=== PATIENT | male | born 1965 | race Caucasian/White ===

== ENCOUNTER 2024-09-17 05:10 | Emergency (ER) | payer OTHER, SELFPAY ==
[2024-09-17 05:11] VITALS: BMI 39.5
[2024-09-17 05:12] VITALS: BP 192/101; PULSE 58; RESP 19; TEMP 36.4; O2SAT 99
--- NOTE | 2024-09-17 06:15 | XR_ITS ---
Examination: CT abdomen and pelvis without contrast. Coronal 3-D reconstructions. Sagittal 2-D reconstructions. Date and time of exam:September 17, 2024, 0723 hours Comparison September 27, 2023 INDICATIONS: Generalized abdominal pain beginning yesterday, history kidney stones CTDI: vol (mGy): 15.3 DLP: (mGycm): 1018 Technique: Axial images of the abdomen have been obtained, 3 mm slice thickness Intravenous contrast material has not been administered. Low dose protocols were performed. One or more of the following dose reduction techniques were used; automated exposure control, adjustment of the mA and/or KV according to patient size, use of iterative reconstruction technique. Findings: No focal liver or splenic lesions No gallstones No pancreatic mass 10 mm right adrenal nodule, likely adenoma, noted on the 2019 exam again noted A 4 mm lower pole left renal calculus No hydronephrosis or ureteral calculi Normal appendix Colonic diverticulosis, no diverticulitis No bladder mass or bladder calculi Mild prostatomegaly Advanced degenerative disc disease T12-L1, L5-S1 IMPRESSION: 4 mm lower pole nonobstructing left renal calculus, no hydronephrosis or ureteral calculi Normal appendix No bowel obstruction or diverticulitis
--- NOTE | 2024-09-17 06:15 | XR_ITS ---
Examination: PA lateral chest 2 views TECHNIQUE: Upright PA and lateral chest 2 views Date and time: September 17, 2024, 0637 hours INDICATIONS: Chest pain today FINDINGS: Normal heart size. Lungs are clear. Osseous structures are intact. IMPRESSION: No active disease.
--- NOTE | 2024-09-17 06:15 | EKG_ITS ---
[facility] Test Date: 2024-09-17 Pat Name: ANNA HOGAN Department: Room: - Gender: Male Silo Filler: : 1965 Requested By: Jacquelyn Talbot Order Number: [id number] Reading MD: Jacquelyn Talbot Measurements Intervals [place] Rate: 57 P: 41 MI: 185 QRS: 36 QRSD: 99 T: 52 QT: 429 QTc: 418 Interpretive Statements SINUS BRADYCARDIA No previous ECG available for comparison /store/S0/[id number]/ecg/[id number].pdf
--- NOTE | 2024-09-17 06:18 | PD.EDRME ---
Rapid Medical Screening Exam RME Arrival date/time: 09/17/24 05:10 Chief Complaint: Abdominal Pain Time Seen by Provider: 09/17/24 05:49 Vital signs: Vital Signs Temperature 97.5 F 09/17/24 05:12 Pulse Rate 58 L 09/17/24 05:12 Respiratory Rate 19 09/17/24 05:12 Blood Pressure 192/101 H 09/17/24 05:12 Pulse Oximetry (%) 99 09/17/24 05:12 Oxygen Delivery Method Room Air 09/17/24 05:12 Vital signs reviewed by provider: Yes RME Narrative: 59-year-old male presents to the ED with a complaint of central abdominal pain extending down into his scrotum as well as nausea, left anterior chest pressure with radiation to his left arm. I have greeted and performed a focused initial assessment of this patient. A comprehensive ED assessment and evaluation of the patient, analysis of all test results, and completion of the medical decision making process will be conducted by additional ED providers.
[2024-09-17 07:24] LABS: Basophils # (Auto) 0.1 Thou/mm3 (0.0-0.2); Basophils % (Auto) 1 % (0-2.5); Eosinophils # (Auto) 0.3 Thou/mm3 (0.0-0.5); Eosinophils % (Auto) 5 % (0-10); Hematocrit 42.1 % (41.0-53.0); Immature Granulocytes % (Auto) 1 % (0-0); Immature Granulocytes Auto 0.06 Thou/mm3 (0.00-0.00); Lymphocytes # (Auto) 2.1 Thou/mm3 (1.0-4.8); Lymphocytes % (Auto) 32 % (10-50); Mean Corpuscular HGB Conc 35.6 g/dl (31.0-37.0); Mean Corpuscular Volume 84 fL (80-100); Monocytes # (Auto) 0.4 Thou/mm3 (0.0-0.8); Monocytes % (Auto) 7 % (0-12); Neutrophils # (Auto) 3.6 Thou/mm3 (1.8-7.7); Neutrophils % (Auto) 55 % (37-80); Nucleated Red Blood Cell % 0 /100 WBC (0); Platelet Count 217 Thou/mm3 (140-440); RDW Standard Deviation 36.6 fL (35.1-43.9); White Blood Count 6.5 Thou/mm3 (3.8-10.6)
[2024-09-17 07:38] LABS: B-Type Natriuretic Peptide 91 pg/mL (0-100)
[2024-09-17 07:40] LABS: Alanine Aminotransferase 20 U/L (10-49); Albumin, Serum 4.2 gm/dL (3.4-4.8); Albumin/Globulin Ratio 1.4 (1.2-2.2); Alkaline Phosphatase 67 U/L (46-116); Amylase 83 U/L (30-118); Anion Gap 6 (7-16); Aspartate Amino Transferase 21 U/L (0-34); BUN/Creatinine Ratio 9 Ratio (12-20); Bilirubin,Total 0.5 mg/dL (0.3-1.2); Blood Urea Nitrogen 12 mg/dL (9-23); Calcium 8.6 mg/dL (8.3-10.6); Calcium (Corrected) 8.6 mg/dL (8.5-10.1); Carbon Dioxide 29.6 mMol/L (20.0-31.0); Chloride 106 mMol/L (98-107); Creatinine (Component) 1.3 mg/dL (0.6-1.3); Estimated Creatinine Clearance 86.4 mL/min (>60); Globulin 2.9 gm/dL (2.3-3.5); Glucose 98 mg/dL (74-106); LDH (Lactate Dehydrogenase) 179 U/L (120-246); Lipase 33 U/L (12-53); Magnesium 1.8 mg/dL (1.6-2.6); Osmolality,Calculated 282 (275-295); Sodium 142 mMol/L (136-145); Total Protein 7.1 gm/dL (5.7-8.2); Troponin I < 0.002 ng/mL (0.0-0.045); eGFR > 60 See Note
[2024-09-17 08:23] LABS: Partial Thromboplastin Time 26.5 Seconds (22.0-36.0); Prothrombin Time 11.3 Seconds (9.0-12.2)
[2024-09-17 09:03] VITALS: BP 194/96; PULSE 60; RESP 14; O2SAT 97
--- NOTE | 2024-09-17 09:38 | EDNOTE_ITS ---
ED Abdominal Pain RME/HPI General Chief Complaint: Abdominal Pain Stated complaint: generalized abd pain Time seen by provider: 09/17/24 05:49 Arrival date/time: 09/17/24 05:10 Limitations: no limitations RME / HPI RME / HPI narrative: 59-year-old male presents to the ED with a complaint of central abdominal pain extending down into his scrotum as well as nausea, left anterior chest pressure with radiation to his left arm. I have greeted and performed a focused initial assessment of this patient. A comprehensive ED assessment and evaluation of the patient, analysis of all test results, and completion of the medical decision making process will be conducted by additional ED providers. DR. WHITING MAIN ED EVALUATION: 59 year old male with past medical history significant for kidney stones presents to the Emergency Department with complaints of left flank and left lower quadrant abdominal pain since yesterday. Pain is described as sharp and rated moderate in severity. Associated symptoms include decreased appetite. No leg swelling. No nausea, vomiting, diarrhea, fevers or chills reported. Patient also reported chest pain that began today, has completely resolved since arriving here. Related Data Previous Rx's ?Medication ?Instructions ?Recorded acetaminophen 300 mg-codeine 30 mg 1 tab PO Q6H PRN pa in #10 tabs 09/27/23 tablet ibuprofen 600 mg tablet 600 mg PO Q6H PRN pain #30 t abs 09/27/23 ondansetron 4 mg disintegrating 4 mg PO Q6H PRN nausea and 09/27/23 tablet vomiting #10 tabs tamsulosin 0.4 mg capsule (Flomax) 0.4 mg PO QDAY #5 c aps 09/27/23 amlodipine 5 mg tablet 5 mg PO QDAY high blood pres sure 09/17/24 #30 tabs Allergies Allergy/AdvReac Type Severity Reaction Status Date / Time latex Allergy Verified 09/17/24 05:16 morphine Allergy unknown Verified 09/17/24 05:16 shrimp Allergy HIVES Verified 09/17/24 05:16 Review of Systems Review of Systems Systems Reviewed: All systems reviewed, normal except as documented Past Medical History Past Medical History GENITOURINARY: Positive Kidney Stones Surgical History SURGICAL: Positive Vasectomy Social History SMOKING STATUS: Former smoker SUBSTANCE USE: does not use ALCOHOL: Never ED Exam General Limitations: Present no limitations General appearance: Present alert, in no apparent distress and obese Head Head exam: Present atraumatic, normocephalic and normal inspection Eye Eye exam: Present normal appearance, PERRL and EOMI ENT ENT exam: Present normal exam, normal oropharynx and mucous membranes moist Neck Neck exam: Present normal inspection, full ROM and trachea midline Chest Chest inspection: Present normal inspection and symmetric chest wall rise Respiratory Respiratory exam: Present normal lung sounds bilaterally Cardiovascular Cardiovascular exam: Present regular rate, normal rhythm and normal heart sounds Abdominal Exam Abdominal exam: Present soft and normal bowel sounds Extremities Exam Extremities exam: Present normal inspection and full ROM Back Exam Back exam: Present normal inspection and full ROM Neurological Exam Neurological exam: Present alert, oriented X3 and CN II-XII intact Psychiatric Psychiatric exam: Present normal affect and normal mood Skin Skin exam: Present warm, dry, intact and normal color Course Quality Measures none Orders Category Date Time Status EKG (ED ONLY) *Do not use* NOW Care 09/17/24 06:15 Completed NPO STAT Care 09/17/24 06:[address] abdomen pelvis wo con Stat Exams 09/17/24 06:15 Completed EKG (ED Only) Stat Exams 09/17/24 06:15 Draft XR chest 2V Stat Exams 09/17/24 06:15 Completed Amylase Stat Lab 09/17/24 07:01 Completed B-Type Natriuretic Peptide Stat Lab 09/17/24 07:01 Completed CBC Stat Lab 09/17/24 07:01 Completed Comprehensive Metabolic Panel Stat Lab 09/17/24 07:01 Completed Drug Screen,Urine Stat Lab 09/17/24 09:50 Completed LDH (Lactate Dehydrogenase) Stat Lab 09/17/24 07:01 Completed Lipase Stat Lab 09/17/24 07:01 Completed Magnesium Stat Lab 09/17/24 07:01 Completed Partial Thromboplastin Time Stat Lab 09/17/24 07:01 Completed Prothrombin Time with INR Stat Lab 09/17/24 07:01 Completed Troponin I Stat Lab 09/17/24 07:01 Completed Troponin I Stat Lab 09/17/24 09:50 Completed Urinalysis Stat Lab 09/17/24 09:50 Completed Diltiazem Cd [Cardizem Cd] Med 09/17/24 09:49 Discontinued 180 mg PO X1 ONE cloNIDine HCL [Catapres] Med 09/17/24 09:42 Discontinued 0.1 mg PO X1 ONE hydrALAZINE INJ [Apresoline Inj] Med 09/17/24 09:42 Discontinued 5 mg IV X1 ONE Vital Signs Vital signs: Vital Signs Temperature 97.5 F 09/17/24 05:12 Pulse Rate 58 L 09/17/24 05:12 Respiratory Rate 19 09/17/24 05:12 Blood Pressure 192/101 H 09/17/24 05:12 Pulse Oximetry (%) 99 09/17/24 05:12 Oxygen Delivery Method Room Air 09/17/24 05:12 Abdominal Pain MDM MDM Narrative MDM Narrative:: I, Mariaelena Willams am scribing for and in the presence of Dr. Whiting. Patient data External records reviewed:: [facility] previous records (Reviewed last ED visit dated 09/27/23 discharged with the following: Kidney stone on right side) Clinical information provided by:: patient Social determinants that could affect healthcare access:: other (specify) (Former smoker) Patient has the following chronic illnesses:: kidney stones How is presenting disease/condition affected by chronic disease/condition?: exacerbated by Evaluation data The following diagnostics were reviewed and interpreted by me:: lab results, radiology exam(s) and EKG tracing(s) (EKG#1: EKG at 0642 hours. Interpreted by me: sinus rhythm, rate 57, no acute changes, MS interval 185 ms, QRS duration 99 ms, QT/QTc 429/422, P-R-T axis 41, 36, and 52) Lab and/or radiology exams considered but not ordered:: none Interpretation Summary: Procedure(s): XR chest 2V Accession Number(s): [id number] cc: Coy Morataya MD; NO PRIMARY/FAMILY,PHYSICIAN; Jacquelyn Duggan PA-C~ Examination: PA lateral chest 2 views TECHNIQUE: Upright PA and lateral chest 2 views Date and time: September 17, 2024, 0637 hours INDICATIONS: Chest pain today FINDINGS: Normal heart size. Lungs are clear. Osseous structures are intact. IMPRESSION: No active disease. Dictated By: Coy Morataya MD Procedure(s): CT abdomen pelvis bree maldonado Accession Number(s): [id number] cc: Coy Morataya MD; NO PRIMARY/FAMILY,PHYSICIAN; Jacquelyn Duggan PA-C~ Examination: CT abdomen and pelvis without contrast. Coronal 3-D reconstructions. Sagittal 2-D reconstructions. Date and time of exam:September 17, 2024, 0723 hours Comparison September 27, 2023 INDICATIONS: Generalized abdominal pain beginning yesterday, history kidney stones CTDI: vol (mGy): 15.3 DLP: (mGycm): 1018 Technique: Axial images of the abdomen have been obtained, 3 mm slice thickness Intravenous contrast material has not been administered. Low dose protocols were performed. One or more of the following dose reduction techniques were used; automated exposure control, adjustment of the mA and/or KV according to patient size, use of iterative reconstruction technique. Findings: No focal liver or splenic lesions No gallstones No pancreatic mass 10 mm right adrenal nodule, likely adenoma, noted on the 2019 exam again noted A 4 mm lower pole left renal calculus No hydronephrosis or ureteral calculi Normal appendix Colonic diverticulosis, no diverticulitis No bladder mass or bladder calculi Mild prostatomegaly Advanced degenerative disc disease T12-L1, L5-S1 IMPRESSION: 4 mm lower pole nonobstructing left renal calculus, no hydronephrosis or ureteral calculi Normal appendix No bowel obstruction or diverticulitis Dictated By: Coy Morataya MD Medications / Prescriptions Medications or Prescriptions considered but not ordered:: none Medication administrations:: Medication Administration History Discontinued Medications Clonidine (Clonidine Hcl 0.1 Mg Tablet) 0.1 mg PO X1 ONE Stop: 09/17/24 09:43 Last Admin: 09/17/24 09:48 Dose: 0.1 mg Documented By: MARLENI Diltiazem HCl (Diltiazem Cd 180 Mg Capcr) 180 mg PO X1 ONE Stop: 09/17/24 09:50 Last Admin: 09/17/24 10:43 Dose: 180 mg Documented By: MARLENI Hydralazine HCl (Hydralazine Inj 20 Mg/Ml Vial) 5 mg IV X1 ONE Stop: 09/17/24 09:43 Last Admin: 09/17/24 09:47 Dose: Not Given Documented By: MARLENI Non-Admin Reason: Cancelled by Provider see above Consultations Consultation(s) initiated? (list below): No Diagnosis Differential diagnosis abdominal pain: abdominal pain, calculus of kidney and other (Nephrolithiasis) Most likely diagnosis given after review of the tests above:: Left flank pain likely due to kidney stone Nephrolithiasis Resolved chest pain Obesity Hypertension Admission Indicated Admission indicated?: not indicated Admission Request Was there a request for admission?: No Disposition Plan Disposition Plan: Discharge Discharge Attestation Discharge Attestation: The patient and all family members were given an opportunity to ask questions and understood the discharge instructions. Discharge instructions specifically effects, indications for sooner follow up or return to the emergency department, and the expected course of current diagnosis. Patient condition: Stable Discharge Plan Plan Patient Disposition: HOME (Self Care) Patient condition on transfer: Stable Prescriptions/Referrals Prescriptions/Med Rec: New amlodipine 5 mg tablet 5 mg PO QDAY MDD 1 Qty: 30 0RF No Action tamsulosin [Flomax] 0.4 mg capsule 0.4 mg PO QDAY Qty: 5 0RF ibuprofen 600 mg tablet 600 mg PO Q6H PRN (Reason: pain) Qty: 30 0RF acetaminophen-codeine 300-30 mg tablet 1 tab PO Q6H PRN (Reason: pain) Qty: 10 0RF ondansetron 4 mg tablet,disintegrating 4 mg PO Q6H PRN (Reason: nausea and vomiting) Qty: 10 0RF Referrals: No Primary/Family,Physician [Primary Care Provider] - In 1 week Problem List Clinical Impression: Flank pain, Nephrolithiasis, Chest pain, Obesity, Hypertension Patient/Caregiver Discharge Instructions Education Materials: Obesity and Its Impact on Health, Losing Weight for Heart Health, 5 Steps for Eating Healthier, Risk Factors for Heart Disease, Weight Management: Getting Started, Weight Manage Exercise Activity, Healthy Snacking, ED Chest Pain, Uncertain Cause, ED High Blood Pressure ..., ED Kidney Stone, Passed Additional Instructions: Please follow-up with your primary care physician within a week. Return to the Emergency Department as needed. [facility] [address] [place], [place] [id number] Print Language: Danish Stand Alone Forms: [employer] Award Info., Work/School Release, Patient Portal Info Letter
[2024-09-17 09:48] VITALS: BP 194/96; PULSE 63
[2024-09-17] MEDS: cloNIDine HCL 0.1 MG TABLET PO (09:48)
[2024-09-17 09:54] LABS: Collection Type, Urine Clean Catch
[2024-09-17 10:15] LABS: Troponin I < 0.002 ng/mL (0.0-0.045)
[2024-09-17 10:43] VITALS: BP 173/104; PULSE 66
[2024-09-17] MEDS: DILTIAZEM CD 180 MG CAPCR PO (10:43)
[2024-09-17 11:17] LABS: Bilirubin,Urine Negative (Negative); Blood,Urine Trace (Negative); Clarity,Urine Clear (Clear/Hazy); Color,Urine Lt-Yellow (Lt Yel-Yel); Glucose, Urine Negative (Negative); Ketones,Urine Negative (Negative); Leukocyte Esterase,Urine Negative (Negative); Nitrite,Urine Negative (Negative); Protein,Urine Negative (Neg - Trace); RBC,Urine 1 /hpf (0-3); Specific Gravity,Urine 1.021 (1.001-1.035); Squamous Epithelial Cell,Urine < 1 /hpf (0-5); Urobilinogen,Urine Negative mg/dL (0.0-1.0); WBC,Urine < 1 /hpf (0-5)
[2024-09-17 11:31] LABS: Amphetamine/Methamp Scrn,U Negative (Negative); Barbiturate Screen,Urine Negative (Negative); Benzodiazepines Screen,Urine Negative (Negative); Benzoylecgonine Screen, Ur Negative (Negative); Fentanyl Screen,Urine Negative (Negative); Opiate Screen,Urine Negative (Negative); THC Screen,Urine Positive (Negative)
[2024-09-17 12:08] VITALS: BP 161/98; PULSE 60; RESP 16; TEMP 36.6; O2SAT 9
[2024-09-17 12:11] VITALS: BP 144/85; PULSE 101; RESP 17; TEMP 36.8; O2SAT 98
== END 2024-09-17 12:19 | disposition home or self-care (01) ==
PROVIDERS: Family Medicine; Physician Assistant; Emergency Provider Emergency Medicine
DX: N20.0 Calculus of kidney (principal); I10 Essential (primary) hypertension; E66.9 Obesity, unspecified; R07.9 Chest pain, unspecified; R00.1 Bradycardia, unspecified; Z68.39 Body mass index [BMI] 39.0-39.9, adult; Z87.891 Personal history of nicotine dependence
CPT/HCPCS: 36415; 71046; 74176; 80053; 80307; 81001; 82150; 83615; 83690; 83735; 83880; 84484; 85025; 85610; 85730; 93005; 99284; A9270

== ENCOUNTER 2024-12-28 08:56 | Emergency (ER) | payer OTHER, SELFPAY ==
[2024-12-28 08:57] VITALS: BMI 39.5
[2024-12-28 09:07] VITALS: PULSE 113; RESP 18; TEMP 36.6; O2SAT 98
--- NOTE | 2024-12-28 09:21 | EDNOTE_ITS ---
ED Abdominal Pain RME/HPI General Chief Complaint: Abdominal Pain Stated complaint: LEFT FLANK PAIN x 2 HOURS, HX STONE Time seen by provider: 12/28/24 09:15 Arrival date/time: 12/28/24 08:56 Limitations: no limitations RME / HPI RME / HPI narrative: DR. VALERIY RUSS ED EVALUATION: 59-year-old male with past medical history of kidney stones presents to the Emergency Department with left flank pain, similar to prior episodes. He describes the pain as localized to the left flank and has been experiencing symptoms consistent with his previous kidney stone episodes. Past surgical history includes vasectomy. Social history is notable for never smoking, no alcohol use, and no recreational drug use. Related Data Previous Rx's ?Medication ?Instructions ?Recorded acetaminophen 300 mg-codeine 30 mg 1 tab PO Q6H PRN pa in #10 tabs 09/27/23 tablet ibuprofen 600 mg tablet 600 mg PO Q6H PRN pain #30 t abs 09/27/23 ondansetron 4 mg disintegrating 4 mg PO Q6H PRN nausea and 09/27/23 tablet vomiting #10 tabs tamsulosin 0.4 mg capsule (Flomax) 0.4 mg PO QDAY #5 c aps 09/27/23 amlodipine 5 mg tablet 5 mg PO QDAY high blood pres sure 09/17/24 #30 tabs hydrocodone 5 mg-acetaminophen 325 1 tab PO Q6H PRN pa in #10 tabs 12/28/24 mg tablet hydrocodone 5 mg-acetaminophen 325 1 tab PO Q8H PRN pa in #10 tabs 12/28/24 mg tablet ibuprofen 800 mg tablet 800 mg PO TID PRN pain #20 t abs 12/28/24 Allergies Allergy/AdvReac Type Severity Reaction Status Date / Time latex Allergy Severe Hives Verified 12/28/24 08:59 morphine Allergy Severe unknown Verified 12/28/24 08:59 shrimp Allergy Severe HIVES Verified 12/28/24 08:59 Review of Systems Review of Systems Systems Reviewed: All systems reviewed, normal except as documented Past Medical History Past Medical History GENITOURINARY: Positive Kidney Stones Surgical History SURGICAL: Positive Vasectomy Social History SMOKING STATUS: Never smoker SUBSTANCE USE: does not use ALCOHOL: Never ED Exam General Limitations: Present no limitations General appearance: Present alert and in distress (grabbing his left flank area, looks in pain) Head Head exam: Present atraumatic, normocephalic and normal inspection Eye Eye exam: Present normal appearance, PERRL and EOMI ENT ENT exam: Present normal exam, normal oropharynx and mucous membranes moist Neck Neck exam: Present normal inspection, full ROM and trachea midline Chest Chest inspection: Present normal inspection and symmetric chest wall rise Respiratory Respiratory exam: Present normal lung sounds bilaterally Cardiovascular Cardiovascular exam: Present regular rate, normal rhythm and normal heart sounds Abdominal Exam Abdominal exam: Present tenderness (left flank area) and normal bowel sounds Extremities Exam Extremities exam: Present normal inspection and full ROM Back Exam Back exam: Present normal inspection and full ROM Neurological Exam Neurological exam: Present alert, oriented X3 and CN II-XII intact Psychiatric Psychiatric exam: Present normal affect and normal mood Skin Skin exam: Present warm, dry, intact and normal color Course Quality Measures none Orders Category Date Time Status Continuous Pulse Oximetry STAT Care 12/28/24 09:26 Completed Insert IV STAT Care 12/28/24 09:26 Completed NPO STAT Care 12/28/24 09:[address] abdomen pelvis wo con Stat Exams 12/28/24 09:28 Completed CBC Stat Lab 12/28/24 09:40 Completed Comprehensive Metabolic Panel Stat Lab 12/28/24 09:40 Completed Lipase Stat Lab 12/28/24 09:40 Completed Magnesium Stat Lab 12/28/24 09:40 Completed Urinalysis, C/S if Indicated Stat Lab 12/28/24 11:48 Received Ketorolac Inj [Toradol Inj] Med 12/28/24 09:20 Discontinued 30 mg IVP X1 ONE Ondansetron Inj [Zofran Inj] Med 12/28/24 09:25 Discontinued 4 mg IVP X1 ONE Vital Signs Vital signs: Vital Signs Temperature 98 F 12/28/24 09:07 Pulse Rate 113 H 12/28/24 09:07 Respiratory Rate 18 12/28/24 09:07 Pulse Oximetry (%) 98 12/28/24 09:07 Oxygen Delivery Method Room Air 12/28/24 09:07 Abdominal Pain MDM MDM Narrative MDM Narrative:: Mariaelena Mendosa am scribing for and in the presence of Dr. Gonsales. Patient data External records reviewed:: [facility] previous records Clinical information provided by:: patient Social determinants that could affect healthcare access:: none Patient has the following chronic illnesses:: History of kidney stones. Past surgical history includes vasectomy. How is presenting disease/condition affected by chronic disease/condition?: exacerbated by Evaluation data The following diagnostics were reviewed and interpreted by me:: lab results and radiology exam(s) Lab and/or radiology exams considered but not ordered:: none Interpretation Summary: Procedure(s): CT abdomen pelvis wo con Accession Number(s): [id number] cc: Coy Morataya MD; NO PRIMARY/FAMILY,PHYSICIAN; Gunnra Gonsales MD~ Examination: CT abdomen and pelvis without contrast. Coronal 3-D reconstructions. Sagittal 2-D reconstructions. Date and time of exam:December 28, 2024, 1026 hours, comparison September 17, 2024 INDICATIONS: Left flank pain today, history kidney stones. CTDI: vol (mGy): 14.1 DLP: (mGycm): 1000 Technique: Axial images of the abdomen have been obtained, 3 mm slice thickness Intravenous contrast material has not been administered. Low dose protocols were performed. One or more of the following dose reduction techniques were used; automated exposure control, adjustment of the mA and/or KV according to patient size, use of iterative reconstruction technique. Findings: No focal liver or splenic lesions. No gallstones. No pancreatic mass. Minimal nodular thickening right adrenal gland. No renal calculi. Minimal left hydronephrosis, 4 mm proximal left ureteral calculus, image 127 Aorta normal size Normal appendix Colonic diverticulosis. No bowel obstruction Contracted urinary bladder, no bladder calculi. Transverse prostate dimension 5 cm Prominent osteopenia. Advanced disc narrowing T12-L1, L5-S1 IMPRESSION: Minimal left hydronephrosis secondary to 4 mm proximal left ureteral calculus Dictated By: Coy Morataya MD Medications / Prescriptions Medications or Prescriptions considered but not ordered:: none Medication administrations:: Medication Administration History Discontinued Medications Ketorolac Tromethamine (Ketorolac Inj 30 Mg/Ml Vial) 30 mg IVP X1 ONE Stop: 12/28/24 09:21 Last Admin: 12/28/24 09:31 Dose: 30 mg Documented By: MARLENI Ondansetron HCl (Ondansetron Inj 2 Mg/Ml Inj 2 Ml) 4 mg IVP X1 ONE; Protocol Stop: 12/28/24 09:26 Last Admin: 12/28/24 09:31 Dose: 4 mg Documented By: MARLENI see above Consultations Consultation(s) initiated? (list below): No Diagnosis Differential diagnosis abdominal pain: other (Nephrolithiasis, ureterolithiasis, and pyelonephritis.) Most likely diagnosis given after review of the tests above:: Renal colic Admission Indicated Admission indicated?: not indicated Admission Request Was there a request for admission?: No Disposition Plan Disposition Plan: Discharge Discharge Attestation Discharge Attestation: The patient and all family members were given an opportunity to ask questions and understood the discharge instructions. Discharge instructions specifically effects, indications for sooner follow up or return to the emergency department, and the expected course of current diagnosis. Patient condition: Stable Discharge Plan Plan Patient Disposition: HOME (Self Care) Discharge Disposition comment: Stable for discharge home Patient condition on transfer: Stable Prescriptions/Referrals Prescriptions/Med Rec: New ibuprofen 800 mg tablet 800 mg PO TID PRN (Reason: pain) Qty: 20 0RF hydrocodone-acetaminophen 5-325 mg tablet 1 tab PO Q6H MDD 4 tabs PRN (Reason: pain) Qty: 10 0RF Rx Instructions: Patient is not allergic to morphine or opiates hydrocodone-acetaminophen 5-325 mg tablet 1 tab PO Q8H MDD 3 tabs PRN (Reason: pain) Qty: 10 0RF No Action tamsulosin [Flomax] 0.4 mg capsule 0.4 mg PO QDAY Qty: 5 0RF ibuprofen 600 mg tablet 600 mg PO Q6H PRN (Reason: pain) Qty: 30 0RF acetaminophen-codeine 300-30 mg tablet 1 tab PO Q6H PRN (Reason: pain) Qty: 10 0RF ondansetron 4 mg tablet,disintegrating 4 mg PO Q6H PRN (Reason: nausea and vomiting) Qty: 10 0RF amlodipine 5 mg tablet 5 mg PO QDAY MDD 1 Qty: 30 0RF Referrals: Jacqui Levine MD [Physician] - In 1 week Problem List Clinical Impression: Renal colic Patient/Caregiver Discharge Instructions Discharge Activity: activity as tolerated Diet Instructions: No restrictions Education Materials: Anatomy of the Male Urinary Tract, ED Kidney Stone w/ Colic Additional Instructions: Please return to the emergency department if you have any worsening or any further medical problems and we will help you. Otherwise you should follow-up with your primary care doctor within the next several days Your CT scan today showed that you have a 4 mm kidney stone. These are very painful. You should take the ibuprofen and the hydrocodone/acetaminophen as directed. Those prescriptions are waiting for you at your pharmacy. Print Language: Scottish Stand Alone Forms: [employer]adege Award Info., Patient Portal Info Letter
--- NOTE | 2024-12-28 09:28 | XR_ITS ---
Examination: CT abdomen and pelvis without contrast. Coronal 3-D reconstructions. Sagittal 2-D reconstructions. Date and time of exam:December 28, 2024, 1026 hours, comparison September 17, 2024 INDICATIONS: Left flank pain today, history kidney stones. CTDI: vol (mGy): 14.1 DLP: (mGycm): 1000 Technique: Axial images of the abdomen have been obtained, 3 mm slice thickness Intravenous contrast material has not been administered. Low dose protocols were performed. One or more of the following dose reduction techniques were used; automated exposure control, adjustment of the mA and/or KV according to patient size, use of iterative reconstruction technique. Findings: No focal liver or splenic lesions. No gallstones. No pancreatic mass. Minimal nodular thickening right adrenal gland. No renal calculi. Minimal left hydronephrosis, 4 mm proximal left ureteral calculus, image 127 Aorta normal size Normal appendix Colonic diverticulosis. No bowel obstruction Contracted urinary bladder, no bladder calculi. Transverse prostate dimension 5 cm Prominent osteopenia. Advanced disc narrowing T12-L1, L5-S1 IMPRESSION: Minimal left hydronephrosis secondary to 4 mm proximal left ureteral calculus
[2024-12-28] MEDS: ONDANSETRON INJ 2 MG/ML INJ 2 ML 4 MG IVP (09:31)
[2024-12-28] MEDS: KETOROLAC INJ 30 MG/ML VIAL IVP (09:31)
[2024-12-28 09:38] VITALS: BP 174/93; PULSE 61; RESP 18; TEMP 36.7; O2SAT 99
[2024-12-28 10:09] LABS: Basophils # (Auto) 0.1 Thou/mm3 (0.0-0.2); Basophils % (Auto) 1 % (0-2.5); Eosinophils # (Auto) 0.2 Thou/mm3 (0.0-0.5); Eosinophils % (Auto) 2 % (0-10); Hematocrit 43.7 % (41.0-53.0); Hemoglobin 15.4 g/dL (13.5-16.0); Immature Granulocytes Auto 0.03 Thou/mm3 (0.00-0.00); Lymphocytes # (Auto) 1.5 Thou/mm3 (1.0-4.8); Lymphocytes % (Auto) 15 % (10-50); Mean Corpuscular HGB Conc 35.2 g/dl (31.0-37.0); Mean Corpuscular Hemoglobin 30.0 pg (25.0-35.0); Mean Corpuscular Volume 85 fL (80-100); Monocytes # (Auto) 0.5 Thou/mm3 (0.0-0.8); Monocytes % (Auto) 6 % (0-12); Neutrophils # (Auto) 7.6 Thou/mm3 (1.8-7.7); Neutrophils % (Auto) 77 % (37-80); Nucleated Red Blood Cell # 0.00 Thou/mm3 (0.00-0.00); Nucleated Red Blood Cell % 0 /100 WBC (0); Platelet Count 297 Thou/mm3 (140-440); RDW Standard Deviation 36.8 fL (35.1-43.9); Red Blood Count 5.13 Miln/mm3 (4.50-5.90); White Blood Count 9.9 Thou/mm3 (3.8-10.6)
[2024-12-28 10:25] LABS: Alanine Aminotransferase 24 U/L (10-49); Albumin, Serum 4.4 gm/dL (3.4-4.8); Albumin/Globulin Ratio 1.4 (1.2-2.2); Alkaline Phosphatase 68 U/L (46-116); Anion Gap 14 (7-16); Aspartate Amino Transferase 24 U/L (0-34); BUN/Creatinine Ratio 9 Ratio (12-20); Bilirubin,Total 0.6 mg/dL (0.3-1.2); Blood Urea Nitrogen 12 mg/dL (9-23); Calcium 9.8 mg/dL (8.3-10.6); Calcium (Corrected) 9.8 mg/dL (8.5-10.1); Carbon Dioxide 23.8 mMol/L (20.0-31.0); Chloride 105 mMol/L (98-107); Creatinine (Component) 1.4 mg/dL (0.6-1.3); Estimated Creatinine Clearance 80.2 mL/min (>60); Globulin 3.1 gm/dL (2.3-3.5); Glucose 110 mg/dL (74-106); Lipase 49 U/L (12-53); Magnesium 2.0 mg/dL (1.6-2.6); Osmolality,Calculated 285 (275-295); Potassium 4.1 mMol/L (3.4-5.1); Sodium 143 mMol/L (136-145); Total Protein 7.5 gm/dL (5.7-8.2); eGFR 57 See Note
[2024-12-28 11:47] VITALS: BP 173/101; PULSE 76; RESP 18; TEMP 36.9; O2SAT 97
[2024-12-28 12:01] LABS: Collection Type, Urine Clean Catch
[2024-12-28 12:13] LABS: Bacteria,Urine Rare; Bilirubin,Urine Negative (Negative); Blood,Urine 3+ (Negative); Color,Urine Yellow (Lt Yel-Yel); Glucose, Urine Negative (Negative); Ketones,Urine 1+ (Negative); Leukocyte Esterase,Urine Positive (Negative); Nitrite,Urine Negative (Negative); PH,Urine 6.5 (5.0-7.0); Protein,Urine 1+ (Neg - Trace); RBC,Urine 2876 /hpf (0-3); Specific Gravity,Urine 1.028 (1.001-1.035); Squamous Epithelial Cell,Urine 1 /hpf (0-5); Urobilinogen,Urine Negative mg/dL (0.0-1.0); WBC,Urine 11 /hpf (0-5)
[2024-12-28 12:27] LABS: Clarity,Urine Hazy (Clear/Hazy); Culture Indicated,Urine Yes
== END 2024-12-28 12:02 | disposition home or self-care (01) ==
PROVIDERS: Emergency Provider Emergency Medicine
DX: N13.2 Hydronephrosis with renal and ureteral calculous obstruction (principal)
CPT/HCPCS: 36415; 74176; 80053; 81001; 83690; 83735; 85025; 87086; 96374; 96375; 99283; J1885; J2405

== ENCOUNTER 2024-12-30 05:46 | Emergency (ER) | payer OTHER, SELFPAY ==
[2024-12-30 05:46] VITALS: BMI 39.5
[2024-12-30 06:15] VITALS: BP 173/91; PULSE 71; RESP 18; TEMP 36.9; O2SAT 99
--- NOTE | 2024-12-30 06:26 | XR_ITS ---
Examination: CT abdomen and pelvis without contrast. Coronal 3-D reconstructions. Sagittal 2-D reconstructions. Date and time of exam:December 30, 2024, 0646 hours, comparison December 28, 2024 INDICATIONS: Bilateral flank pain beginning 2 days ago, history kidney stones CTDI: vol (mGy): 14.3 DLP: (mGycm): 995 Technique: Axial images of the abdomen have been obtained, 3 mm slice thickness Intravenous contrast material has not been administered. Low dose protocols were performed. One or more of the following dose reduction techniques were used; automated exposure control, adjustment of the mA and/or KV according to patient size, use of iterative reconstruction technique. Findings: No focal liver or splenic lesions No gallstones No pancreatic or adrenal mass. Again noted mild left hydronephrosis, 4 mm proximal left ureteral calculus Aorta normal size Normal appendix Scattered colonic diverticulosis Contracted urinary bladder Advanced disc narrowing T12-L1, L5-S1 IMPRESSION: Unchanged mild left hydronephrosis secondary to 4 mm proximal left ureteral calculus.
[2024-12-30] MEDS: KETOROLAC INJ 60 MG/2 ML VIAL 15 MG IM (06:35)
[2024-12-30 07:40] LABS: Collection Type, Urine Clean Catch
--- NOTE | 2024-12-30 07:52 | EDNOTE_ITS ---
ED Back Injury Pain RME/HPI General Chief Complaint: Back Pain/Injury Stated Complaint: FLANK PAIN / HX KIDNEY Time Seen by Provider: 12/30/24 06:08 Arrival date/time: 12/30/24 05:46 Limitations: no limitations RME / HPI RME / HPI Narrative: 59 year old male with history of kidney stones presents to the ED with complaint of left flank pain beginning 2 days ago. Described as colicky in sensation that is located the left flank, rating as severe. Patient states he was evaluated here 2 days ago for similar pain and diagnosed with a 4mm left ureteral stone and discharged home with pain medication. States he has taken the medications with very little improvement adding the pain today was worse, prompting return. Denies any fevers, chills, vomiting, or difficulty urinating. Patient mentioned he has yet to see a urologist since his last ED visit 2 days ago. Related Data Previous Rx's ?Medication ?Instructions ?Recorded acetaminophen 300 mg-codeine 30 mg 1 tab PO Q6H PRN pa in #10 tabs 09/27/23 tablet ibuprofen 600 mg tablet 600 mg PO Q6H PRN pain #30 t abs 09/27/23 ondansetron 4 mg disintegrating 4 mg PO Q6H PRN nausea and 09/27/23 tablet vomiting #10 tabs tamsulosin 0.4 mg capsule (Flomax) 0.4 mg PO QDAY #5 c aps 09/27/23 amlodipine 5 mg tablet 5 mg PO QDAY high blood pres sure 09/17/24 #30 tabs hydrocodone 5 mg-acetaminophen 325 1 tab PO Q6H PRN pa in #10 tabs 12/28/24 mg tablet hydrocodone 5 mg-acetaminophen 325 1 tab PO Q8H PRN pa in #10 tabs 12/28/24 mg tablet ibuprofen 800 mg tablet 800 mg PO TID PRN pain #20 t abs 12/28/24 hydrocodone 5 mg-acetaminophen 325 1 tab PO BID PRN pa in (scale score 12/30/24 mg tablet 7-10) #10 tabs Allergies Allergy/AdvReac Type Severity Reaction Status Date / Time latex Allergy Severe Hives Verified 12/28/24 08:59 morphine Allergy Severe unknown Verified 12/28/24 08:59 shrimp Allergy Severe HIVES Verified 12/28/24 08:59 Review of Systems Review of Systems Systems Reviewed: All systems reviewed, normal except as documented Past Medical History Past Medical History GENITOURINARY: Positive Kidney Stones Surgical History SURGICAL: Positive Vasectomy Social History SMOKING STATUS: Current some day smoker SUBSTANCE USE: does not use ED Exam General Limitations: Present no limitations General appearance: Present alert and in no apparent distress Head Head exam: Present atraumatic, normocephalic and normal inspection Eye Eye exam: Present normal appearance and EOMI ENT ENT exam: Present normal exam, normal oropharynx and mucous membranes moist Neck Neck exam: Present normal inspection Chest Chest inspection: Present normal inspection and symmetric chest wall rise Respiratory Respiratory exam: Present normal lung sounds bilaterally Cardiovascular Cardiovascular exam: Present regular rate, normal rhythm and normal heart sounds Abdominal Exam Abdominal exam: Present soft and normal bowel sounds Extremities Exam Extremities exam: Present normal inspection and full ROM Back Exam Back exam: Present normal inspection and full ROM Neurological Exam Neurological exam: Present alert, oriented X3 and CN II-XII intact Psychiatric Psychiatric exam: Present normal affect and normal mood Skin Skin exam: Present warm, dry, intact and normal color Course Quality Measures none Orders Category Date Time Status CT abdomen pelvis wo con Stat Exams 12/30/24 06:26 Completed UA, C/S IF [Urinalysis, C/S if Indicated] Stat Lab 12/30/24 04:42 Completed Ketorolac Inj [Toradol Inj] Med 12/30/24 06:26 Discontinued 15 mg IM X1 ONE Vital Signs Vital signs: Vital Signs Temperature 98.5 F 12/30/24 06:15 Pulse Rate 71 12/30/24 06:15 Respiratory Rate 18 12/30/24 06:15 Blood Pressure 173/91 H 12/30/24 06:15 Pulse Oximetry (%) 99 12/30/24 06:15 Oxygen Delivery Method Room Air 12/30/24 06:15 Pulse ox is 99% on room air which is adequate. Back Pain / Injury MDM Narrative MDM Narrative:: Diana Mendosa am scribing for and in the presence of Dr. Gonsales. Patient data External records reviewed:: [facility] previous records (I reviewed ED visit from 12/28/2024 ) Clinical information provided by:: patient Social determinants that could affect healthcare access:: none Patient has the following chronic illnesses:: Kidney stones How is presenting disease/condition affected by chronic disease/condition?: exacerbated by Evaluation data The following diagnostics were reviewed and interpreted by me:: lab results and radiology exam(s) Lab and/or radiology exams considered but not ordered:: None Interpretation Summary: Ordering Physician: Roxane Spring MD Date of Service: 12/30/24 Procedure(s): CT abdomen pelvis wo con Accession Number(s): [id number] cc: Coy Morataya MD; NO PRIMARY/FAMILY,PHYSICIAN; Roxane Spring MD~ Examination: CT abdomen and pelvis without contrast. Coronal 3-D reconstructions. Sagittal 2-D reconstructions. Date and time of exam:December 30, 2024, 0646 hours, comparison December 28, 2024 INDICATIONS: Bilateral flank pain beginning 2 days ago, history kidney stones CTDI: vol (mGy): 14.3 DLP: (mGycm): 995 Technique: Axial images of the abdomen have been obtained, 3 mm slice thickness Intravenous contrast material has not been administered. Low dose protocols were performed. One or more of the following dose reduction techniques were used; automated exposure control, adjustment of the mA and/or KV according to patient size, use of iterative reconstruction technique. Findings: No focal liver or splenic lesions No gallstones No pancreatic or adrenal mass. Again noted mild left hydronephrosis, 4 mm proximal left ureteral calculus Aorta normal size Normal appendix Scattered colonic diverticulosis Contracted urinary bladder Advanced disc narrowing T12-L1, L5-S1 IMPRESSION: Unchanged mild left hydronephrosis secondary to 4 mm proximal left ureteral calculus. Dictated By: Coy Morataya MD Signed By: <Electronically signed by Coy Morataya MD in OV> 12/30/24 0700 Medications / Prescriptions Medications or Prescriptions considered but not ordered:: None Medication administrations:: Medication Administration History Discontinued Medications Ketorolac Tromethamine (Ketorolac Inj 60 Mg/2 Ml Vial) 15 mg IM X1 ONE Stop: 12/30/24 06:27 Last Admin: 12/30/24 06:35 Dose: 15 mg Documented By: CB See above Consultations Consultation(s) initiated? (list below): No Diagnosis Most likely diagnosis given after review of the tests above:: Renal colic Admission Indicated Admission indicated?: not indicated Admission Request Was there a request for admission?: No Disposition Plan Disposition Plan: Discharge Discharge Attestation Discharge Attestation: The patient and all family members were given an opportunity to ask questions and understood the discharge instructions. Discharge instructions specifically effects, indications for sooner follow up or return to the emergency department, and the expected course of current diagnosis. Patient condition: Stable Discharge Plan Plan Patient Disposition: HOME (Self Care) Discharge Disposition comment: Stable for discharge home Patient condition on transfer: Stable Prescriptions/Referrals Prescriptions/Med Rec: New hydrocodone-acetaminophen 5-325 mg tablet 1 tab PO BID MDD 2 PRN (Reason: pain (scale score 7-10)) Qty: 10 0RF No Action tamsulosin [Flomax] 0.4 mg capsule 0.4 mg PO QDAY Qty: 5 0RF ibuprofen 600 mg tablet 600 mg PO Q6H PRN (Reason: pain) Qty: 30 0RF acetaminophen-codeine 300-30 mg tablet 1 tab PO Q6H PRN (Reason: pain) Qty: 10 0RF ondansetron 4 mg tablet,disintegrating 4 mg PO Q6H PRN (Reason: nausea and vomiting) Qty: 10 0RF amlodipine 5 mg tablet 5 mg PO QDAY MDD 1 Qty: 30 0RF ibuprofen 800 mg tablet 800 mg PO TID PRN (Reason: pain) Qty: 20 0RF hydrocodone-acetaminophen 5-325 mg tablet 1 tab PO Q6H MDD 4 tabs PRN (Reason: pain) Qty: 10 0RF Rx Instructions: Patient is not allergic to morphine or opiates hydrocodone-acetaminophen 5-325 mg tablet 1 tab PO Q8H MDD 3 tabs PRN (Reason: pain) Qty: 10 0RF Referrals: Jacqui Levine MD [Physician] - In 1 week Problem List Clinical Impression: Renal colic Patient/Caregiver Discharge Instructions Discharge Activity: activity as tolerated Diet Instructions: No restrictions Education Materials: Anatomy of the Male Urinary Tract, ED Kidney Stone w/ Colic Additional Instructions: Today you were seen again for your left kidney stone. The CT scan does not show worsening. I have called in a prescription for the same pain medicine that you had before. Please pick that up at your pharmacy at your earliest convenience Be sure to call Dr. Levine in the morning please. Please return to the emergency department if you have any worsening or any further medical problems we will help you. Otherwise you should follow-up with your primary care doctor within the next several days Print Language: Malagasy Stand Alone Forms: [employer] Patient Portal Info Letter
--- NOTE | 2024-12-30 07:59 | PD.EDRME ---
Rapid Medical Screening Exam RME Arrival date/time: 12/30/24 05:46 59 year old male with history of kidney stones presents to the ED with complaint of left flank pain beginning 2 days ago. Described as colicky in sensation that is located the left flank, rating as severe. Patient states he was evaluated here 2 days ago for similar pain and diagnosed with a 4mm ureteral stone and discharged home with pain medication. States he has taken the medications with very little improvement adding the pain is getting worse. Past surgical history includes vasectomy. Social history is notable for never smoking, no alcohol use, and no recreational drug use. Chief Complaint: Back Pain/Injury Time Seen by Provider: 12/30/24 06:08 Vital signs: Vital Signs Temperature 98.5 F 12/30/24 06:15 Pulse Rate 71 12/30/24 06:15 Respiratory Rate 18 12/30/24 06:15 Blood Pressure 173/91 H 12/30/24 06:15 Pulse Oximetry (%) 99 12/30/24 06:15 Oxygen Delivery Method Room Air 12/30/24 06:15 RME Narrative: 59 year old male with history of kidney stones presents to the ED with complaint of left flank pain beginning 2 days ago. Described as colicky in sensation that is located the left flank, rating as severe. Patient states he was evaluated here 2 days ago for similar pain and diagnosed with a 4mm ureteral stone and discharged home with pain medication. States he has taken the medications with very little improvement adding the pain is getting worse. Past surgical history includes vasectomy. Social history is notable for never smoking, no alcohol use, and no recreational drug use.
[2024-12-30 08:01] LABS: Bilirubin,Urine Negative (Negative); Blood,Urine 3+ (Negative); Color,Urine Yellow (Lt Yel-Yel); Culture Indicated,Urine Not Indicated; Glucose, Urine Negative (Negative); Ketones,Urine 1+ (Negative); Leukocyte Esterase,Urine Negative (Negative); Nitrite,Urine Negative (Negative); PH,Urine 6.0 (5.0-7.0); Protein,Urine 1+ (Neg - Trace); RBC,Urine 91 /hpf (0-3); Specific Gravity,Urine 1.028 (1.001-1.035); Squamous Epithelial Cell,Urine < 1 /hpf (0-5); Urobilinogen,Urine Negative mg/dL (0.0-1.0); WBC,Urine 5 /hpf (0-5)
[2024-12-30 08:23] LABS: Clarity,Urine Hazy (Clear/Hazy)
[2024-12-30 10:21] VITALS: BP 133/78; PULSE 88; RESP 21; TEMP 36.8; O2SAT 98
== END 2024-12-30 10:22 | disposition home or self-care (01) ==
PROVIDERS: Emergency Medicine; Emergency Provider Emergency Medicine
DX: N13.2 Hydronephrosis with renal and ureteral calculous obstruction (principal)
CPT/HCPCS: 74176; 80053; 81001; 83690; 85025; 96372; 99282; J1885

== ENCOUNTER 2024-12-31 09:36 | Observation (INO) | payer OTHER, SELFPAY ==
[2024-12-31] VITALS (9 sets, daily range): BP systolic 160–185; BP diastolic 78–101; PULSE 64–91; RESP 15–95; TEMP 36.6–37; O2SAT 95–97; BMI 39.5; BMI 38.4
--- NOTE | 2024-12-31 10:14 | PD.EDMALE ---
ED Male Genitalurinary RME/HPI General Chief complaint: General Adult/Misc Complain Stated complaint: KIDNEY STONES Time Seen by Provider: 12/31/24 09:50 Source: patient Arrival date/time: 12/31/24 09:36 59-year-old male with no known medical history presents to the emergency room with a chief complaint of sided flank pain x 4 days Mode of arrival: ambulatory Limitations: no limitations Related Data Previous Rx's ?Medication ?Instructions ?Recorded acetaminophen 300 mg-codeine 30 mg 1 tab PO Q6H PRN pain #10 tabs 09/27/23 tablet ibuprofen 600 mg tablet 600 mg PO Q6H PRN pain #30 tabs 09/27/23 ondansetron 4 mg disintegrating 4 mg PO Q6H PRN nausea and 09/27/23 tablet vomiting #10 tabs tamsulosin 0.4 mg capsule (Flomax) 0.4 mg PO QDAY #5 caps 09/27/23 amlodipine 5 mg tablet 5 mg PO QDAY high blood pressure 09/17/24 #30 tabs hydrocodone 5 mg-acetaminophen 325 1 tab PO Q6H PRN pain #10 tabs 12/28/25 mg tablet hydrocodone 5 mg-acetaminophen 325 1 tab PO Q8H PRN pain #10 tabs 12/28/25 mg tablet ibuprofen 800 mg tablet 800 mg PO TID PRN pain #20 tabs 12/28/24 hydrocodone 5 mg-acetaminophen 325 1 tab PO BID PRN pain (scale score 12/30/25 mg tablet 7-10) #10 tabs Allergies Allergy/AdvReac Type Severity Reaction Status Date / Time latex Allergy Severe Hives Verified 12/31/24 09:39 morphine Allergy Severe unknown Verified 12/31/24 09:39 shrimp Allergy Severe HIVES Verified 12/31/24 09:39 ED Exam General Limitations: Present no limitations Course Orders Category Date Time Status CBC Stat Lab 12/31/24 10:12 Ordered CMP [Comprehensive Metabolic Panel] Stat Lab 12/31/24 10:12 Ordered UA, C/S IF [Urinalysis, C/S if Indicated] Stat Lab 12/31/24 10:12 Ordered Ketorolac Inj [Toradol Inj] Med 12/31/24 09:59 Discontinued 30 mg IM X1 ONE Vital Signs Vital signs: Vital Signs Temperature 98 F 12/31/24 09:49 Pulse Rate 85 12/31/24 09:49 Respiratory Rate 18 12/31/24 09:49 Blood Pressure 168/78 H 12/31/24 09:49 Pulse Oximetry (%) 96 12/31/24 09:49 Oxygen Delivery Method Room Air 12/31/24 09:49 Urogenital - Male Medications / Prescriptions Medication administrations:: Medication Administration History Discontinued Medications Ketorolac Tromethamine (Ketorolac Inj 60 Mg/2 Ml Vial) 30 mg IM X1 ONE Stop: 12/31/24 10:00 Discharge Plan Plan Patient Disposition: HOME (Self Care) Prescriptions/Referrals Prescriptions/Med Rec: No Action tamsulosin [Flomax] 0.4 mg capsule 0.4 mg PO QDAY Qty: 5 0RF ibuprofen 600 mg tablet 600 mg PO Q6H PRN (Reason: pain) Qty: 30 0RF acetaminophen-codeine 300-30 mg tablet 1 tab PO Q6H PRN (Reason: pain) Qty: 10 0RF ondansetron 4 mg tablet,disintegrating 4 mg PO Q6H PRN (Reason: nausea and vomiting) Qty: 10 0RF amlodipine 5 mg tablet 5 mg PO QDAY MDD 1 Qty: 30 0RF ibuprofen 800 mg tablet 800 mg PO TID PRN (Reason: pain) Qty: 20 0RF hydrocodone-acetaminophen 5-325 mg tablet 1 tab PO Q6H MDD 4 tabs PRN (Reason: pain) Qty: 10 0RF Rx Instructions: Patient is not allergic to morphine or opiates hydrocodone-acetaminophen 5-325 mg tablet 1 tab PO Q8H MDD 3 tabs PRN (Reason: pain) Qty: 10 0RF hydrocodone-acetaminophen 5-325 mg tablet 1 tab PO BID MDD 2 PRN (Reason: pain (scale score 7-10)) Qty: 10 0RF Patient/Caregiver Discharge Instructions Print Language: Swedish Stand Alone Forms: [employer] Patient Portal Info Letter
[2024-12-31] MEDS: KETOROLAC INJ 60 MG/2 ML VIAL 30 MG IM (10:19)
[2024-12-31 10:39] LABS: Collection Type, Urine Clean Catch
[2024-12-31 10:46] LABS: Basophils # (Auto) 0.1 Thou/mm3 (0.0-0.2); Basophils % (Auto) 1 % (0-2.5); Eosinophils # (Auto) 0.2 Thou/mm3 (0.0-0.5); Eosinophils % (Auto) 2 % (0-10); Hematocrit 40.8 % (41.0-53.0); Hemoglobin 14.0 g/dL (13.5-16.0); Immature Granulocytes Auto 0.05 Thou/mm3 (0.00-0.00); Lymphocytes # (Auto) 1.7 Thou/mm3 (1.0-4.8); Lymphocytes % (Auto) 13 % (10-50); Mean Corpuscular HGB Conc 34.3 g/dl (31.0-37.0); Mean Corpuscular Hemoglobin 29.7 pg (25.0-35.0); Mean Corpuscular Volume 87 fL (80-100); Monocytes # (Auto) 1.3 Thou/mm3 (0.0-0.8); Monocytes % (Auto) 10 % (0-12); Neutrophils # (Auto) 9.2 Thou/mm3 (1.8-7.7); Neutrophils % (Auto) 74 % (37-80); Nucleated Red Blood Cell # 0.00 Thou/mm3 (0.00-0.00); Nucleated Red Blood Cell % 0 /100 WBC (0); Platelet Count 215 Thou/mm3 (140-440); RDW Standard Deviation 38.1 fL (35.1-43.9); Red Blood Count 4.71 Miln/mm3 (4.50-5.90); White Blood Count 12.5 Thou/mm3 (3.8-10.6)
[2024-12-31] MEDS: RINGERS LACTATED 1000 ML 1,000 ML 999 ML IV (10:53)
[2024-12-31 10:57] LABS: Alanine Aminotransferase 12 U/L (10-49); Albumin, Serum 4.1 gm/dL (3.4-4.8); Albumin/Globulin Ratio 1.5 (1.2-2.2); Alkaline Phosphatase 63 U/L (46-116); Anion Gap 11 (7-16); Aspartate Amino Transferase 17 U/L (0-34); BUN/Creatinine Ratio 10 Ratio (12-20); Bilirubin,Total 1.3 mg/dL (0.3-1.2); Blood Urea Nitrogen 20 mg/dL (9-23); Calcium 9.5 mg/dL (8.3-10.6); Calcium (Corrected) 9.5 mg/dL (8.5-10.1); Carbon Dioxide 25.3 mMol/L (20.0-31.0); Chloride 101 mMol/L (98-107); Creatinine (Component) 2.1 mg/dL (0.6-1.3); Estimated Creatinine Clearance 53.5 mL/min (>60); Globulin 2.7 gm/dL (2.3-3.5); Glucose 98 mg/dL (74-106); Osmolality,Calculated 276 (275-295); Potassium 4.0 mMol/L (3.4-5.1); Sodium 137 mMol/L (136-145); Total Protein 6.8 gm/dL (5.7-8.2); eGFR 35 See Note
[2024-12-31 11:04] LABS: Bilirubin,Urine Negative (Negative); Blood,Urine 3+ (Negative); Color,Urine Yellow (Lt Yel-Yel); Culture Indicated,Urine Not Indicated; Glucose, Urine Negative (Negative); Ketones,Urine 3+ (Negative); Leukocyte Esterase,Urine Negative (Negative); Nitrite,Urine Negative (Negative); PH,Urine 6.0 (5.0-7.0); Protein,Urine 1+ (Neg - Trace); RBC,Urine 53 /hpf (0-3); Specific Gravity,Urine 1.033 (1.001-1.035); Squamous Epithelial Cell,Urine < 1 /hpf (0-5); Urobilinogen,Urine Negative mg/dL (0.0-1.0); WBC,Urine 5 /hpf (0-5)
[2024-12-31 11:13] LABS: Clarity,Urine Hazy (Clear/Hazy)
--- NOTE | 2024-12-31 13:01 | PD.EDRME ---
Rapid Medical Screening Exam RME Arrival date/time: 12/31/24 09:36 59-year-old male with no known medical history presents to the emergency room with a chief complaint of sided flank pain x 4 days I have greeted and performed a focused initial assessment of this patient. A comprehensive ED assessment and evaluation of the patient, analysis of all test results, and completion of the medical decision making process will be conducted by additional ED providers. Chief Complaint: General Adult/Misc Complain Time Seen by Provider: 12/31/24 09:50 Vital signs: Vital Signs Temperature 98 F 12/31/24 09:49 Pulse Rate 85 12/31/24 09:49 Respiratory Rate 18 12/31/24 09:49 Blood Pressure 168/78 H 12/31/24 09:49 Pulse Oximetry (%) 96 12/31/24 09:49 Oxygen Delivery Method Room Air 12/31/24 09:49 Vital signs reviewed by provider: Yes
[2024-12-31 13:53] LABS: Alanine Aminotransferase 12 U/L (10-49); Albumin, Serum 3.9 gm/dL (3.4-4.8); Albumin/Globulin Ratio 1.6 (1.2-2.2); Alkaline Phosphatase 59 U/L (46-116); Anion Gap 9 (7-16); Aspartate Amino Transferase 16 U/L (0-34); BUN/Creatinine Ratio 10 Ratio (12-20); Bilirubin,Total 1.1 mg/dL (0.3-1.2); Blood Urea Nitrogen 19 mg/dL (9-23); Calcium 9.2 mg/dL (8.3-10.6); Calcium (Corrected) 9.3 mg/dL (8.5-10.1); Carbon Dioxide 26.7 mMol/L (20.0-31.0); Chloride 102 mMol/L (98-107); Creatinine (Component) 1.9 mg/dL (0.6-1.3); Estimated Creatinine Clearance 59.1 mL/min (>60); Globulin 2.5 gm/dL (2.3-3.5); Glucose 93 mg/dL (74-106); Osmolality,Calculated 277 (275-295); Potassium 3.8 mMol/L (3.4-5.1); Sodium 138 mMol/L (136-145); Total Protein 6.4 gm/dL (5.7-8.2); eGFR 40 See Note
--- NOTE | 2024-12-31 14:01 | EDNOTE_ITS ---
ED Male Genitalurinary RME/HPI General Chief complaint: General Adult/Misc Complain Stated complaint: KIDNEY STONES Time Seen by Provider: 12/31/24 09:50 Arrival date/time: 12/31/24 09:36 Limitations: no limitations RME / HPI RME / HPI Narrative: 12/31/24 09:36 59-year-old male with no known medical history presents to the emergency room with a chief complaint of sided flank pain x 4 days I have greeted and performed a focused initial assessment of this patient. A comprehensive ED assessment and evaluation of the patient, analysis of all test results, and completion of the medical decision making process will be conducted by additional ED providers. DR. JOEL RUSS ED EVALUATION 59 year old male with history of kidney stones returns to the ED for evaluation of persistent left flank pain beginning 4 days ago. States he was evaluated here twice since onset, most recently yesterday. A repeat CT scan performed at that time that was unchanged and showing a 4mm left distal ureteral stone. Patient reports that he was discharged with additional pain medication, which has provided minimal to no relief. Pain described as colicky, rated as severe, localized to the left flank, with no radiation. Denies fevers, chills, nausea, vomiting, dysuria or hematuria. This morning, the patient contacted urologist Dr. Levine's office but was informed by staff that a referral from his PCP is required. Related Data Previous Rx's ?Medication ?Instructions ?Recorded acetaminophen 300 mg-codeine 30 mg 1 tab PO Q6H PRN pa in #10 tabs 09/27/23 tablet ibuprofen 600 mg tablet 600 mg PO Q6H PRN pain #30 t abs 09/27/23 ondansetron 4 mg disintegrating 4 mg PO Q6H PRN nausea and 09/27/23 tablet vomiting #10 tabs tamsulosin 0.4 mg capsule (Flomax) 0.4 mg PO QDAY #5 c aps 09/27/23 amlodipine 5 mg tablet 5 mg PO QDAY high blood pres sure 09/17/24 #30 tabs hydrocodone 5 mg-acetaminophen 325 1 tab PO Q6H PRN pa in #10 tabs 12/28/24 mg tablet hydrocodone 5 mg-acetaminophen 325 1 tab PO Q8H PRN pa in #10 tabs 12/28/24 mg tablet ibuprofen 800 mg tablet 800 mg PO TID PRN pain #20 t abs 12/28/24 hydrocodone 5 mg-acetaminophen 325 1 tab PO BID PRN pa in (scale score 12/30/24 mg tablet 7-10) #10 tabs Allergies Allergy/AdvReac Type Severity Reaction Status Date / Time latex Allergy Severe Hives Verified 12/31/24 09:39 morphine Allergy Severe unknown Verified 12/31/24 09:39 shrimp Allergy Severe HIVES Verified 12/31/24 09:39 Review of Systems Review of Systems Systems Reviewed: All systems reviewed, normal except as documented Past Medical History Past Medical History CARDIAC: Positive Hypertension GENITOURINARY: Positive Kidney Stones Family History FAMILY HISTORY: Positive Family Respiratory Disorders and Family Cancer (RENAL CANCER) Surgical History SURGICAL: Positive Vasectomy Social History SMOKING STATUS: Current every day smoker SUBSTANCE USE: does not use ED Exam General Limitations: Present no limitations General appearance: Present alert and in no apparent distress Head Head exam: Present atraumatic and normocephalic Eye Eye exam: Present normal appearance, PERRL and EOMI ENT ENT exam: Present normal exam, normal oropharynx and mucous membranes moist Neck Neck exam: Present normal inspection, full ROM and trachea midline Chest Chest inspection: Present normal inspection and symmetric chest wall rise Respiratory Respiratory exam: Present normal lung sounds bilaterally Cardiovascular Cardiovascular exam: Present regular rate, normal rhythm and normal heart sounds Abdominal Exam Abdominal exam: Present soft and normal bowel sounds Extremities Exam Extremities exam: Present normal inspection and full ROM Back Exam Back exam: Present CVA tenderness (L) Neurological Exam Neurological exam: Present alert, oriented X3 and CN II-XII intact Psychiatric Psychiatric exam: Present normal affect and normal mood Skin Skin exam: Present warm, dry, intact and normal color Course Quality Measures none Orders Category Date Time Status CBC Stat Lab 12/31/24 10:26 Completed CMP [Comprehensive Metabolic Panel] Stat Lab 12/31/24 10:26 Completed CMP [Comprehensive Metabolic Panel] Stat Lab 12/31/24 13:24 Completed UA, C/S IF [Urinalysis, C/S if Indicated] Stat Lab 12/31/24 10:30 Completed Ketorolac Inj [Toradol Inj] Med 12/31/24 09:59 Discontinued 30 mg IM X1 ONE Ringers Lactated 1000 ml [Lactated Ringers] 1,000 ml Med 12/31/24 10:15 Dis continued IV 999 mls/hr Tamsulosin HCl [Flomax] Med 01/01/25 09:00 Discontinued 0.4 mg PO DAILY Vital Signs Vital signs: Vital Signs Temperature 98 F 12/31/24 09:49 Pulse Rate 85 12/31/24 09:49 Respiratory Rate 18 12/31/24 09:49 Blood Pressure 168/78 H 12/31/24 09:49 Pulse Oximetry (%) 96 12/31/24 09:49 Oxygen Delivery Method Room Air 12/31/24 09:49 Pulse ox is 96% on room air which is adequate. Urogenital - Male MDM Narrative MDM Narrative:: Diana Mendosa am scribing for and in the presence of Dr. Spring. Patient data External records reviewed:: [facility] previous records (I reviewed ED visits from 12/28/2024 and 12/30/2024 ) Clinical information provided by:: patient Social determinants that could affect healthcare access:: none Patient has the following chronic illnesses:: Kidney stones How is presenting disease/condition affected by chronic disease/condition?: exacerbated by Evaluation data The following diagnostics were reviewed and interpreted by me:: lab results Lab and/or radiology exams considered but not ordered:: None Interpretation Summary: See MDM Medications / Prescriptions Medications or Prescriptions considered but not ordered:: None Medication administrations:: Medication Administration History Acetaminophen (Acetaminophen 325 Mg Tablet) 650 mg PO Q6H PRN PRN Reason: Fever >101.5 Stop: 01/30/25 15:23 Hydrocodone Bitart/Acetaminophen (Hydrocodone/Apap 10/325 Tab) 1 tab PO Q4H PRN PRN Reason: PAIN SCALE 4-6 (Moderate Stop: 01/05/25 15:23 Dicyclomine HCl (Dicyclomine Inj 10 Mg/Ml 2ml Vial) 10 mg IM Q6HR PRN; Protocol PRN Reason: GASTROINTESTINAL PAIN Stop: 01/30/25 15:35 Hydralazine HCl (Hydralazine Inj 20 Mg/Ml Vial) 10 mg IVP Q3H PRN PRN Reason: SBP >180mmHg Stop: 01/30/25 16:32 Hydromorphone HCl (Hydromorphone Inj 2 Mg/Ml Vial) 0.5 mg IVP Q3H PRN PRN Reason: Pain 7-10 Stop: 01/05/25 15:23 Lactated Ringer's (Lactated Ringers) 1,000 mls @ 75 mls/hr IV .[id number] [facility] Stop: 01/01/25 15:32 Last Admin: 12/31/24 16:26 Dose: 75 mls/hr Documented By: GM Nifedipine (Nifedipine Xl 30 Mg Tabcr) 30 mg PO QDAY [facility] Stop: 01/30/25 15:59 Ondansetron HCl (Ondansetron Inj 2 Mg/Ml Inj 2 Ml) 4 mg IVP Q6H PRN; Protocol PRN Reason: NAUSEA OR VOMITING Stop: 01/30/25 15:23 Pantoprazole Sodium (Pantoprazole Inj 40 Mg Vial) 40 mg IVP QDAY [facility] Stop: 01/30/25 15:29 Last Admin: 12/31/24 16:21 Dose: 40 mg Documented By: Sennosides (Senna Tablet) 1 tab PO QDAY [facility]; Protocol Stop: 01/30/25 15:29 Last Admin: 12/31/24 16:20 Dose: 1 tab Documented By: Tamsulosin HCl (Tamsulosin Hcl 0.4 Mg Capsule) 0.4 mg PO DAILY [facility] Stop: 01/30/25 15:34 Last Admin: 12/31/24 16:20 Dose: 0.4 mg Documented By: Discontinued Medications Lactated Ringer's (Lactated Ringers) 1,000 mls @ 999 mls/hr IV .Q1H1M ONE Stop: 12/31/24 11:15 Last Infusion: 12/31/24 11:48 Dose: Infused Documented By: Admin: 12/31/24 10:53 Dose: 999 mls/hr Documented By: Sodium Chloride (Ns) 500 mls @ 999 mls/hr IV .Q31M ONE Stop: 12/31/24 15:54 Last Infusion: 12/31/24 17:10 Dose: Infused Documented By: Admin: 12/31/24 16:27 Dose: 999 mls/hr Documented By: Ketorolac Tromethamine (Ketorolac Inj 60 Mg/2 Ml Vial) 30 mg IM X1 ONE Stop: 12/31/24 10:00 Last Admin: 12/31/24 10:19 Dose: 30 mg Documented By: Tamsulosin HCl (Tamsulosin Hcl 0.4 Mg Capsule) 0.4 mg PO DAILY [facility] Stop: 01/31/25 08:59 See above Consultations Consultation(s) initiated? (list below): Yes Consultation #1 (Physician, Specialty, Details): I spoke with urologist Dr. Levine. Discussed patients PMHx, HPI, ED course, exam findings, labs, and radiology results. States at this time no immediate intervention is required. Advised admitting the patient and will see him tomorrow. Time: 14:08 Consultation #2 (Physician, Specialty, Details): I spoke with [facility]t team C regarding admission. Discussed patients PMHx, HPI, ED course, exam findings, labs, and radiology results. The hospitalist agree to accept the patient for admission. Time: 14:14 Diagnosis Urogenital Male Differential Diagnosis: urinary tract infection and other (CHAYA, kidney stone, pyelonephritis ) Most likely diagnosis given after review of the tests above:: Kidney stone Admission Indicated Admission indicated?: indicated Admission Request Was there a request for admission?: Yes Admission Attestation Admission request attestation: Discussed case with [] from Hospitalist service regarding admission. Discussed patients ED course, exam findings, labs, and radiology results. The Hospitalist [agrees,declines] to accept the patient for admission. Disposition Plan Disposition Plan: Admit Discharge Plan Plan Patient Disposition: Admit Acute Care w/in Hospital Problem List Clinical Impression: Kidney stone on left side
--- NOTE | 2024-12-31 14:30 | PC.LAC ---
requested documentaion faxed to Dr. Levine @ [phone]
--- NOTE | 2024-12-31 15:47 | ESHP_ITS ---
<Statement entered by Rafa Jacobson MD - 12/31/24 17:00> A 59-year-old male patient known case of kidney stones presented to the ED due to acute left flank pain for 4 days before admission. Patient reported that he started to experience colicky abdominal pain on the left side associated with anorexia, nausea, vomiting. He came to the ED at that time CT scan was done and showed kidney stones with mild elevation of serum creatinine. Patient was prescribed oral pain painkillers and was discharged with instruction to return if symptoms did not improve. He was instructed to follow-up with urologist however he was unable to schedule an appointment with his urologist due to insurance issues. Today he reported the pain continued to worsen and it moved from the left loin area to radiate to the left testicle. He reported dark discoloration of his urine however he denied any fever, dysuria or frequency. He denied using any [id number] calcium or vitamin D. However, he reported that for the past 8 weeks he has been drinking 1 bottle of tea every day. Today CT scan showed a 6 mm kidney stone in the proximal ureter causing hydronephrosis His blood pressure initially was 168/78, pulse rate was 85, temperature 98 saturating well on room air. Examination was positive for left CVA tenderness. His labs showed mild elevation of his WBCs 12.5, other cell lines within normal limits, his CMP showed potassium of 3.8, serum creatinine is 1.9 was 2.1 on presentation however he was given 1 L of IV fluid by the ED. His urine analysis was positive for 3 for blood and +3 for ketones +14 protein and showed 53 RBC count/hpf. Patient was given 1 dose of ketorolac by the ED team and they consulted the urologist Dr. Levine who recommended to admit the patient to the hospital and he will assess the patient tomorrow if patient need to have a stent placement. Assessment and plan #CHAYA most likely secondary to combination of dehydration and less likely obstruction #Renal stone on the left side Plan ? Dr. Levine was consulted ? Tamsulosin 0.4 mg p.o. daily start from today ? Dicyclomine 10 mg Im every 6 hours as needed for colicky abdominal pain ? Multimodal pain management ? Will continue to monitor at the patient developed any signs of infection we will start ceftriaxone. #High blood pressure Patient denied any history of hypertension. His blood pressure initially was 168/89, his blood pressure increased to 185/96. Patient discussed that Plan ? Start the patient on hydralazine IV 10 mg IV every 3 hours if SBP more than 180 mmHg ? Start the patient on nifedipine 30 mg PO daily - Patient's plan and care discussed with my attending, Dr. Ganesh Jacobson MD Internal Medicine PGY-3 Documentation for date of: 12/31/24 HPI History of Present Illness Chief complaint: Left flank pain History of present illness: 59 y/o male with PMH of HTN (not taking prescribed meds), nephrolithiasis presenting with left sided flank pain for last 4 days. Patient presented to the ED on last Tuesday and Tuesday for same complaint. Patient describes the pain as constant pain that radiates to the back. He is taking the ED prescribed hydrocodone that is providing minimal relief. Reports occasional chills. Denies denies fever, SOB, chest or chest pain. ED Course: Vitals: 98F, HR: 85, Resp: 18, BP: 168/78, Pulse Ox: [address] scan is unchanged showing left hydronephrosis secondary to a 4mm proximal left ureteral calculus. Urine: 1+ Protein, 3+ ketones, 3+ blood, RBC: 53, WBC: 5 Pertinent Labs: Na: 138, K+: 3.8, Cl: 102, Bicarb: 25.3, BUN: 19, Cr: 1.9. WBC: 12.5, HGB: 14, Hct: 48.0, Plt: 215 Consults: Urology (Dr. Xiong) consulted for nephrolithiasis and CHAYA. Code: DNR (Patient and explained and understands). Patient screened for depression, negative for Sleep changes, Lost interest, guilt, loss of energy, decreased concentration, appetite changes, psychomotor changes, or suicidal thoughts. Medical Hx: Patient has not been diagnosed with any chronic conditions Medications: Hydrocodone (from last ED visit) Shx: Vasectomy 12 years ago Allergies: Shrimp, Latex, Lobster, Morphine Fhx: Mother at 51 from renal cancer. Father committed suicide due to pain from several health issues including muscular dystrophy. Soc: Lives alone at home. 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 Cigs/ Tobacco: Chews tobacco 1 tm/day Alcohol: 1-2 drinks a month Drugs: Marijuana 1-2 times a month Patient admitted for flank pain due to nephrolithiasis, and CHAYA. Review of Systems Constitutional Constitutional: Reports system reviewed and no additional complaints, except as documented Eyes Eyes: Reports system reviewed and no additional complaints, except as documented ENT Ears, Nose, Mouth, and Throat: Reports system reviewed and no additional complaints, except as documented Cardiovascular Cardiovascular: Reports system reviewed and no additional complaints, except as documented Respiratory Respiratory: Reports system reviewed and no additional complaints, except as documented Gastrointestinal Gastrointestinal: Reports abdominal pain Comments: No bowel moments since last Tuesday. Genitourinary Comments: Occasional pain in the scrotum, started around same time as flank pain. Musculoskeletal Musculoskeletal: Reports system reviewed and no additional complaints, except as documented Exam Vital Signs Temp Pulse Resp BP Pulse Ox O2 Del Method 98.5 F 68 15 173/99 H 95 Room Air 12/31/24 15:24 12/31/24 15:24 12/31/24 15:24 12/31/24 15:24 12/31/24 15:12/31/24 15:24 Narrative Exam * General: Patient is fully alert and oriented. Mild respiratory distress due to pain. * Resp: Normal lung sounds, no wheezing or strider. * Cardio: RRR, No gallops, rubs or murmurs. * GI: Abdomen in soft, No tenderness to palpation, No guarding or rigiddity. Increased bowel sounds diffusely. * Extremities: No edema in any extermeities, equal pulses. No bruises, or color changes. * CVA tenderness positive bilaterally L>R Routine HEENT Exam ENT: Present mucous membranes moist Routine Extremities Exam Extremities: Present full ROM Comments: No pitting edema Results: Labs 12/31/24 10:26 12/31/24 13:24 Labs: Short CBC 12/31/24 Range/Units 10: WBC 12.5 H (3.8-10.6) Thou/mm3 Hgb 14.0 (13.5-16.0) g/dL Hct 40.8 L (41.0-53.0) % Plt Count 215 D (140-440) Thou/mm3 BMP 12/31/24 12/31/24 10: 13:24 Sodium 137 138 Potassium 4.0 3.8 Chloride 101 102 Carbon Dioxide 25.3 26.7 BUN 20 19 Creatinine 2.1 H D 1.9 H Glucose 98 93 Calcium 9.5 9.2 Liver Function 12/31/24 12/31/24 Range/Units 10:26 13:24 Total Bilirubin 1.3 H 1.1 (0.3-1.2) mg/dL AST 17 16 (0-34) U/L ALT 12 12 (10-49) U/L Alkaline Phosphatase 63 59 (46-116) U/L Albumin 4.1 3.9 (3.4-4.8) gm/dL Urine 12/31/24 Range/Units 10:30 Urine Color Yellow (Lt Yel-Yel) Urine Clarity Hazy (Clear/Hazy) Urine pH 6.0 (5.0-7.0) Ur Specific [place] 1.033 (1.001-1.035) Urine Protein 1+ A (Neg - Trace) Urine Glucose (UA) Negative (Negative) Quality Measures Quality Measures VTE prophylaxis (SCD) and none Medications Home Medications and Allergies Allergies Allergy/AdvReac Type Severity Reaction Status Date / Time latex Allergy Severe Hives Verified 12/31/24 09:39 morphine Allergy Severe unknown Verified 12/31/24 09:39 shrimp Allergy Severe HIVES Verified 12/31/24 09:39 Visit Medications Acetaminophen (Acetaminophen 325 Mg Tablet) 650 mg PO Q6H PRN PRN Reason: Fever >101.5 Stop: 01/30/25 15:23 Hydrocodone Bitart/Acetaminophen (Hydrocodone/Apap 10/325 Tab) 1 tab PO Q4H PRN PRN Reason: PAIN SCALE 4-6 (Moderate Stop: 01/05/25 15:23 Dicyclomine HCl (Dicyclomine Inj 10 Mg/Ml 2ml Vial) 10 mg IM Q6HR PRN PRN Reason: colicky pain Stop: 01/30/25 15:35 Hydromorphone HCl (Hydromorphone Inj 2 Mg/Ml Vial) 0.5 mg IVP Q3H PRN PRN Reason: Pain 7-10 Stop: 01/05/25 15:23 Sodium Chloride (Ns) 500 mls @ 999 mls/hr IV .Q31M ONE Stop: 12/31/24 15:54 Lactated Ringer's (Lactated Ringers) 1,000 mls @ 75 mls/hr IV .[id number] [facility] Stop: 01/01/25 15:32 Ondansetron HCl (Ondansetron Inj 2 Mg/Ml Inj 2 Ml) 4 mg IVP Q6H PRN; Protocol PRN Reason: NAUSEA OR VOMITING Stop: 01/30/25 15:23 Pantoprazole Sodium (Pantoprazole Inj 40 Mg Vial) 40 mg IVP QDAY [facility] Stop: 01/30/25 15:29 Sennosides (Senna Tablet) 1 tab PO QDAY [facility]; Protocol Stop: 01/30/25 15:29 Tamsulosin HCl (Tamsulosin Hcl 0.4 Mg Capsule) 0.4 mg PO DAILY [facility] Stop: 01/30/25 15:34 Discontinued Medications Lactated Ringer's (Lactated Ringers) 1,000 mls @ 999 mls/hr IV .Q1H1M ONE Stop: 12/31/24 11:15 Last Infusion: 12/31/24 11:48 Dose: Infused Ketorolac Tromethamine (Ketorolac Inj 60 Mg/2 Ml Vial) 30 mg IM X1 ONE Stop: 12/31/24 10:00 Last Admin: 12/31/24 10:19 Dose: 30 mg Tamsulosin HCl (Tamsulosin Hcl 0.4 Mg Capsule) 0.4 mg PO DAILY [facility] Stop: 01/31/25 08:59 Assessment & Plan Problem List (1) Kidney stone on left side: Status: Acute (2) Renal colic: Status: Acute (3) CHAYA (acute kidney injury): Status: Acute Plan Margaret Barrientos, 59 y/o male with PMH of kidney stones presenting with left sided pain for 4 days patient was admitted for tx of obstructive Lt Nephrolithiasis and CHAYA. #Left Sided Nephrolithiasis - 4mm proximal ureteral stone with left sided hydronephrosis on CT #CHAYA - likely with combined pre-renal and post-renal component, Cr:1.9, GFR: 40. Likely post renal due to obstruction and possible pre-renal due to dehydration caused by vomiting and decreased intake. Patient currently not showing any signs of infection, no dysuria, or fever. Increased WBCs likely due to colicky pain. Will monitor and start ceftriaxone if needed. - Urology Consulted - IV Hydration - Pain Control - Monitor CMP and Kidney function # Hypertension: Systolic blood pressure ranging from 168-185. Could be chronic and/or worsened due to pain. - Nifedipine 30mg -Monitor BP - Outpatient workup with PCP # Constipation: Last bowel moment 3 days ago. - Senna 1 tab PO QD Attending Provider Attestation/Addendum I have discussed and was present for the essential components of the history, physical examination, diagnosis, and treatment plan with the resident. I agree with the patient's care as documented by the resident and amended herein by me. Vladimir Andersen DO. Although this document has been carefully reviewed, there may still be some phonetic and other typographical errors. These errors are purely grammatical due to imperfections in the software program and should not be construed in any way to compromise the substance of the patient's medical care during this visit.
[2024-12-31] MEDS: TAMSULOSIN HCL 0.4 MG CAPSULE PO (16:20)
[2024-12-31] MEDS: RINGERS LACTATED 1000 ML 1,000 ML 75 ML IV (16:26)
[2024-12-31] MEDS: SODIUM CHLORIDE 0.9% 500 ML 500 ML 999 ML IV (16:27)
--- NOTE | 2024-12-31 17:20 | PD.RESHP ---
Documentation for date of: 12/31/24 Exam Vital Signs Temp Pulse Resp BP Pulse Ox O2 Del Method 98.5 F 68 15 173/99 H 95 Room Air 12/31/24 15:24 12/31/24 15:24 12/31/24 15:24 12/31/24 15:24 12/31/24 15:24 12/31/24 15:24 Results: Labs 01/01/25 04:34 01/01/25 04:34 Labs: Short CBC 12/31/24 Range/Units 10:26 WBC 12.5 H (3.8-10.6) Thou/mm3 Hgb 14.0 (13.5-16.0) g/dL Hct 40.8 L (41.0-53.0) % Plt Count 215 D (140-440) Thou/mm3 BMP 12/31/24 12/31/24 10:26 13:24 Sodium 137 138 Potassium 4.0 3.8 Chloride 101 102 Carbon Dioxide 25.3 26.7 BUN 20 19 Creatinine 2.1 H D 1.9 H Glucose 98 93 Calcium 9.5 9.2 Liver Function 12/31/24 12/31/24 Range/Units 10:26 13:24 Total Bilirubin 1.3 H 1.1 (0.3-1.2) mg/dL AST 17 16 (0-34) U/L ALT 12 12 (10-49) U/L Alkaline Phosphatase 63 59 (46-116) U/L Albumin 4.1 3.9 (3.4-4.8) gm/dL Urine 12/31/24 Range/Units 10:30 Urine Color Yellow (Lt Yel-Yel) Urine Clarity Hazy (Clear/Hazy) Urine pH 6.0 (5.0-7.0) Ur Specific [place] 1.033 (1.001-1.035) Urine Protein 1+ A (Neg - Trace) Urine Glucose (UA) Negative (Negative) Quality Measures Quality Measures VTE prophylaxis (SCD) and none Medications Home Medications and Allergies Allergies Allergy/AdvReac Type Severity Reaction Status Date / Time latex Allergy Severe Hives Verified 12/31/24 09:39 morphine Allergy Severe unknown Verified 12/31/24 09:39 shrimp Allergy Severe HIVES Verified 12/31/24 09:39 Visit Medications Acetaminophen (Acetaminophen 325 Mg Tablet) 650 mg PO Q6H PRN PRN Reason: Fever >101.5 Stop: 01/30/25 15:23 Hydrocodone Bitart/Acetaminophen (Hydrocodone/Apap 10/325 Tab) 1 tab PO Q4H PRN PRN Reason: PAIN SCALE 4-6 (Moderate Stop: 01/05/25 15:23 Dicyclomine HCl (Dicyclomine Inj 10 Mg/Ml 2ml Vial) 10 mg IM Q6HR PRN; Protocol PRN Reason: GASTROINTESTINAL PAIN Stop: 01/30/25 15:35 Hydralazine HCl (Hydralazine Inj 20 Mg/Ml Vial) 10 mg IVP Q3H PRN PRN Reason: SBP >180mmHg Stop: 01/30/25 16:32 Hydromorphone HCl (Hydromorphone Inj 2 Mg/Ml Vial) 0.5 mg IVP Q3H PRN PRN Reason: Pain 7-10 Stop: 01/05/25 15:23 Lactated Ringer's (Lactated Ringers) 1,000 mls @ 75 mls/hr IV .[id number] [facility] Stop: 01/01/25 15:32 Last Admin: 12/31/24 16:26 Dose: 75 mls/hr Nifedipine (Nifedipine Xl 30 Mg Tabcr) 30 mg PO QDAY [facility] Stop: 01/30/25 15:59 Ondansetron HCl (Ondansetron Inj 2 Mg/Ml Inj 2 Ml) 4 mg IVP Q6H PRN; Protocol PRN Reason: NAUSEA OR VOMITING Stop: 01/30/25 15:23 Pantoprazole Sodium (Pantoprazole Inj 40 Mg Vial) 40 mg IVP QDAY [facility] Stop: 01/30/25 15:29 Last Admin: 12/31/24 16:21 Dose: 40 mg Sennosides (Senna Tablet) 1 tab PO QDAY [facility]; Protocol Stop: 01/30/25 15:29 Last Admin: 12/31/24 16:20 Dose: 1 tab Tamsulosin HCl (Tamsulosin Hcl 0.4 Mg Capsule) 0.4 mg PO DAILY [facility] Stop: 01/30/25 15:34 Last Admin: 12/31/24 16:20 Dose: 0.4 mg Discontinued Medications Lactated Ringer's (Lactated Ringers) 1,000 mls @ 999 mls/hr IV .Q1H1M ONE Stop: 12/31/24 11:15 Last Infusion: 12/31/24 11:48 Dose: Infused Sodium Chloride (Ns) 500 mls @ 999 mls/hr IV .Q31M ONE Stop: 12/31/24 15:54 Last Infusion: 12/31/24 17:10 Dose: Infused Ketorolac Tromethamine (Ketorolac Inj 60 Mg/2 Ml Vial) 30 mg IM X1 ONE Stop: 12/31/24 10:00 Last Admin: 12/31/24 10:19 Dose: 30 mg Tamsulosin HCl (Tamsulosin Hcl 0.4 Mg Capsule) 0.4 mg PO DAILY [facility] Stop: 01/31/25 08:59
[2024-12-31] MEDS: NIFEdipine XL 30 MG TABCR PO (18:28)
[2024-12-31] MEDS: HYDROmorphone INJ 2 MG/ML VIAL 0.5 MG IVP (21:29)
[2025-01-01] VITALS (11 sets, daily range): BP systolic 148–165; BP diastolic 69–99; PULSE 83–92; RESP 18–95; TEMP 36.3–37.1; O2SAT 91–99
[2025-01-01] MEDS: HYDROmorphone INJ 2 MG/ML VIAL 0.5 MG IVP ×5 (03:20→22:47)
[2025-01-01] MEDS: RINGERS LACTATED 1000 ML 1,000 ML 75 ML IV (05:26)
[2025-01-01 05:29] LABS: Basophils # (Auto) 0.0 Thou/mm3 (0.0-0.2); Basophils % (Auto) 0 % (0-2.5); Eosinophils # (Auto) 0.2 Thou/mm3 (0.0-0.5); Eosinophils % (Auto) 2 % (0-10); Hematocrit 39.0 % (41.0-53.0); Hemoglobin 13.3 g/dL (13.5-16.0); Immature Granulocytes Auto 0.04 Thou/mm3 (0.00-0.00); Lymphocytes # (Auto) 0.8 Thou/mm3 (1.0-4.8); Lymphocytes % (Auto) 8 % (10-50); Mean Corpuscular HGB Conc 34.1 g/dl (31.0-37.0); Mean Corpuscular Hemoglobin 29.6 pg (25.0-35.0); Mean Corpuscular Volume 87 fL (80-100); Monocytes # (Auto) 1.2 Thou/mm3 (0.0-0.8); Monocytes % (Auto) 11 % (0-12); Neutrophils # (Auto) 8.4 Thou/mm3 (1.8-7.7); Neutrophils % (Auto) 78 % (37-80); Nucleated Red Blood Cell # 0.00 Thou/mm3 (0.00-0.00); Nucleated Red Blood Cell % 0 /100 WBC (0); Platelet Count 204 Thou/mm3 (140-440); RDW Standard Deviation 37.9 fL (35.1-43.9); Red Blood Count 4.49 Miln/mm3 (4.50-5.90); White Blood Count 10.7 Thou/mm3 (3.8-10.6)
[2025-01-01 05:35] LABS: Glucose Estimated Average 111 mg/dL (80-131); Hemoglobin A1C 5.5 % Hgb (4.8-6.0); INR 1.0 (0.9-1.3); Partial Thromboplastin Time 29.6 Seconds (22.0-36.0); Prothrombin Time 11.4 Seconds (9.0-12.2)
[2025-01-01 05:42] LABS: Anion Gap 11 (7-16); BUN/Creatinine Ratio 9 Ratio (12-20); Blood Urea Nitrogen 16 mg/dL (9-23); Calcium 9.1 mg/dL (8.3-10.6); Carbon Dioxide 26.5 mMol/L (20.0-31.0); Chloride 103 mMol/L (98-107); Creatinine (Component) 1.7 mg/dL (0.6-1.3); Estimated Creatinine Clearance 65.1 mL/min (>60); Glucose 107 mg/dL (74-106); Magnesium 1.7 mg/dL (1.6-2.6); Osmolality,Calculated 280 (275-295); Phosphorous 2.6 mg/dL (2.4-5.1); Potassium 4.0 mMol/L (3.4-5.1); Sodium 140 mMol/L (136-145); Thyroid Stimulating Hormone 2.28 uIU/mL (0.55-4.78); eGFR 45 See Note
[2025-01-01] MEDS: TAMSULOSIN HCL 0.4 MG CAPSULE PO (08:20)
[2025-01-01] MEDS: NIFEdipine XL 30 MG TABCR PO (08:20)
--- NOTE | 2025-01-01 09:32 | ESPR_ITS ---
<Statement entered by Zora Butcher MD - 01/01/25 19:28> I have reviewed the note and agree with the resident's assessment & plan with exceptions as below. I have personally reviewed labs, imaging, home meds/prior records, examined the patient, formulated and discussed management plan with the IM team. Patient examined at bedside today. Urology on consult, appreciate recommendations. Patient to get evaluated for ureteral stent for hydronephrosis with 4 mm stone with hydronephrosis. Continue Rocephin 1 g IV daily. Will order urine sodium and creatinine to evaluate for etiology of CHAYA. Repeat hematology and chemistry in AM. N.p.o. at midnight. Zora Butcher, PGY-2 Internal Medicine Documentation for date of: 01/01/25 Subjective Subjective Interval history: 59 y/o male with left proximal ureteral stone and CHAYA on admission day 2. Overnight patient complained of severe left flank pain rating at 10/10, reported little relief with PRN hydromorphone. Today morning patient was more comfortable with 3/10 pain. Patient still has not had a bowel moment as of today morning wants to continue with Senna. Patient upset that he is not being seen by urology today, Dr. Galdamez said he will be seen tomorrow for a possible ureteral stent placement. BUN is down to 16 from 19, Creatinine is 1.7 from 1.9 (2.1 on admission).GFR improved to 45 from 40. WBC down to 10.7 from 12.5 Exam Vital Signs Temp Pulse Resp BP Pulse Ox O2 Del Method 98.2 F 85 18 158/75 H 96 Room Air 01/01/25 08:00 01/01/25 08:20 01/01/25 08:00 01/01/25 08:20 01/01/25 08:00 01/01/25 08:00 Narrative Exam * General: Patient is fully alert and oriented. Mild distress due to pain. * Resp: Normal lung sounds, no wheezing or strider. * Cardio: RRR, No gallops, rubs or murmurs. * GI: Abdomen in soft, No tenderness to palpation, No guarding or rigidity. * Extremities: No peripheral edema. Equal pulses. No bruises, or color changes. * CVA tenderness positive bilaterally L>R, same as yesterday. Objective Labs 01/02/25 05:04 01/02/25 05:04 Labs: Laboratory Results - last 24 hr 12/31/24 12/31/24 12/31/24 10:26 10:30 13:24 WBC 12.5 H RBC 4.71 Hgb 14.0 Hct 40.8 L MCV 87 MCH 29.7 MCHC 34.3 RDW Std Deviation 38.1 Plt Count 215 D Neut % (Auto) 74 Lymph % (Auto) 13 [place] % (Auto) 10 Eos % (Auto) 2 Baso % (Auto) 1 Neut # (Auto) 9.2 H Lymph # (Auto) 1.7 [place] # (Auto) 1.3 H Eos # (Auto) 0.2 Baso # (Auto) 0.1 Immature Gran # (Auto) 0.05 H Absolute Nucleated RBC 0.00 Immature Gran % 0 Nucleated RBC % 0 PT INR APTT Sodium 137 138 Potassium 4.0 3.8 Chloride 101 102 Carbon Dioxide 25.3 26.7 Anion Gap 11 9 BUN 20 19 Creatinine 2.1 H D 1.9 H Estim Creat Clear Calc 53.5 L 59.1 L eGFR 35 L 40 L BUN/Creatinine Ratio 10 L 10 L Glucose [address] Glu mg/dL Hemoglobin A1c Calculated Osmolality 276 277 Calcium 9.5 9.2 Corrected Calcium 9.5 9.3 Phosphorus Magnesium Total Bilirubin 1.3 H 1.1 AST 17 16 ALT 12 12 Alkaline Phosphatase 63 59 Total Protein 6.8 6.4 Albumin 4.1 3.9 Globulin 2.7 2.5 Albumin/Globulin Ratio 1.5 1.6 TSH Ur Collection Type Clean Catch Urine Color Yellow Urine Clarity Hazy Urine pH 6.0 Ur Specific [place] 1.033 Urine Protein 1+ A Urine Glucose (UA) Negative Urine Ketones 3+ A Urine Blood 3+ A Urine Nitrite Negative Urine Bilirubin Negative Urine Urobilinogen (Auto) Negative Ur Leukocyte Esterase Negative Urine RBC 53 H Urine WBC 5 Ur Squamous Epith Cells < 1 Urine Bacteria None Ur Culture Indicated? Not Indicated 01/01/25 04:34 WBC 10.7 H RBC 4.49 L Hgb 13.3 L Hct 39.0 L MCV 87 MCH 29.6 MCHC 34.1 RDW Std Deviation 37.9 Plt Count 204 Neut % (Auto) 78 Lymph % (Auto) 8 L [place] % (Auto) 11 Eos % (Auto) 2 Baso % (Auto) 0 Neut # (Auto) 8.4 H Lymph # (Auto) 0.8 L [place] # (Auto) 1.2 H Eos # (Auto) 0.2 Baso # (Auto) 0.0 Immature Gran # (Auto) 0.04 H Absolute Nucleated RBC 0.00 Immature Gran % 0 Nucleated RBC % 0 PT 11.4 INR 1.0 APTT 29.6 Sodium 140 Potassium 4.0 Chloride 103 Carbon Dioxide 26.5 Anion Gap 11 BUN 16 Creatinine 1.7 H Estim Creat Clear Calc 65.1 eGFR 45 L BUN/Creatinine Ratio 9 L Glucose [address] Glu mg/dL 111 Hemoglobin A1c 5.5 Calculated Osmolality 280 Calcium 9.1 Corrected Calcium Phosphorus 2.6 Magnesium 1.7 Total Bilirubin AST ALT Alkaline Phosphatase Total Protein Albumin Globulin Albumin/Globulin Ratio TSH 2.28 Ur Collection Type Urine Color Urine Clarity Urine pH Ur Specific [place] Urine Protein Urine Glucose (UA) Urine Ketones Urine Blood Urine Nitrite Urine Bilirubin Urine Urobilinogen (Auto) Ur Leukocyte Esterase Urine RBC Urine WBC Ur Squamous Epith Cells Urine Bacteria Ur Culture Indicated? Quality Measures Quality Measures VTE prophylaxis (SCD) and none Assessment & Plan Assessment Current Active Medications: Generic Name Dose Route Start Last Admin Trade Name Freq PRN Reason Stop Dose Admin Acetaminophen 650 mg 12/31/24 15:24 Acetaminophen 325 Mg Tablet PO 01/30/25 15:23 Q6H PRN Fever >101.5 Hydrocodone Bitart/Acetaminophen 1 tab 12/31/24 15:24 Hydrocodone/Apap 10/325 Tab PO 01/05/25 15:23 Q4H PRN PAIN SCALE 4-6 (Moderate Dicyclomine HCl 10 mg 12/31/24 15:36 Dicyclomine Inj 10 Mg/Ml 2ml Vial IM 01/30/25 15:35 Q6HR PRN GASTROINTESTINAL PAIN Protocol Hydralazine HCl 10 mg 12/31/24 16:33 Hydralazine Inj 20 Mg/Ml Vial IVP 01/30/25 16:32 Q3H PRN SBP >180mmHg Hydromorphone HCl 0.5 mg 12/31/24 15:24 01/01/25 03:20 Hydromorphone Inj 2 Mg/Ml Vial IVP 01/05/25 15:23 0.5 mg Q3H PRN Administration Pain 7-10 Lactated Ringer's 1,000 mls @ 75 mls/hr 12/31/24 15:33 01/01/25 05:26 Lactated Ringers IV 01/01/25 15:32 75 mls/hr .[id number] LEIGH ANN Administration Nifedipine 30 mg 12/31/24 16:00 01/01/25 08:20 Nifedipine Xl 30 Mg Tabcr PO 01/30/25 15:59 30 mg QDAY LEIGH ANN Administration Ondansetron HCl 4 mg 12/31/24 15:24 Ondansetron Inj 2 Mg/Ml Inj 2 Ml IVP 01/30/25 15:23 Q6H PRN NAUSEA OR VOMITING Protocol Pantoprazole Sodium 40 mg 12/31/24 15:30 01/01/25 08:19 Pantoprazole Inj 40 Mg Vial IVP 01/30/25 15:29 40 mg QDAY LEIGH ANN Administration Sennosides 1 tab 12/31/24 15:30 01/01/25 08:20 Senna Tablet PO 01/30/25 15:29 1 tab QDAY LEIGH ANN Administration Protocol Tamsulosin HCl 0.4 mg 12/31/24 15:35 01/01/25 08:20 Tamsulosin Hcl 0.4 Mg Capsule PO 01/30/25 15:34 0.4 mg DAILY LEIGH ANN Administration Plan Assesssment Margaret Barrientos, 59 y/o male with PMH of kidney stones presenting with left sided pain for 4 days patient was admitted for tx of obstructive Lt Nephrolithiasis and CHAYA. Impatient day 2 #Left Sided Nephrolithiasis - 4mm proximal ureteral stone with left sided hydronephrosis on CT #CHAYA (improving)- Pre-Renal vs Post-renal or combination of both. BUN/Cr ratio of 9. Cr:1.7 (Down from 1.9) , GFR: 45 (up from 40). Positive CVA tenderness bilaterally L>R. WBCs 10.7 (down from 12.5), possible pyelonephritis vs UTI. - Urology will see patient tomorrow for ureteral stent, NPO after midnight. - IV Hydration - Dicyclomine 10 mg IM for Q6 Hrs PRN - Multi model pain control - Monitor CMP and Kidney function - Ceftriaxone IV 1 g Qday. - Urine sodium and creatinine # Hypertension: Could be chronic and worsened due to pain. Today: 158/75 - Nifedipine 30mg PO QD - Start the patient on hydralazine IV 10 mg IV every 3 hours if SBP more than 180 mmHg - Monitor BP - Outpatient workup with PCP # Constipation: Last bowel moment 4 days ago. - Senna 1 tab PO QD #Health Maintenance Disposition: MedSurg DVT prophylaxis: SCDs GI prophylaxis: Protonix Diet: Cardiac CODE STATUS: DNR Patient seen and care discussed with my attending physician, Dr. Burgess and my senior resident, Dr. Guadalupe Marion, [facility] [place]-[facility] Attending Provider Attestation/Addendum I reviewed labs, imaging, EKG, home medications and prior available records. Face to face evaluation was performed by me. I have personally examined the patient and discussed assessment and plan with the IM team. I reviewed the resident note and agree with the plan with exceptions as below. Nephrolithiasis, left 4 mm ureteral stone Obstructive uropathy CHAYA Possible acute UTI Consulted urology: N.p.o. after midnight for urologic intervention on 01/02 Management of pain as needed IV fluids IV ceftriaxone Monitor kidney function. Avoid nephrotoxins
--- NOTE | 2025-01-01 11:12 | PC.SS ---
Patient is alert/oriented. Patient was able to verify demographics. Patient is independent with ADL's. No DME. Patient states he lives alone. Patient is employed. He drives himself to appointments. Patient was admitted for kidney stones. Patient is pending a stent placement. Urology consult. PCP: No physician. Patient is open to following up at the [facility] upon discharge. [facility]acy[facility]. Discharge plan is to return home. Alt medical decision maker: Sister, Thalia Diaz, .
[2025-01-01] MEDS: cefTRIAXone/D5w 1gm IV premix 1 GM/50 ML BAG IV (13:06)
--- NOTE | 2025-01-01 13:25 | PC.NURSE ---
Dr Levien in for consult. Discussed procedure to be done tomorrow. Risks, benefits and alternative options discussed. Discussed patient will need to follow up in office for full work up. Discussed the need for stent removal should it be needed, and patient understands it is temporary. All questions were answered. Dr Levine informed patient that the schedule is very busy tomorrow and procedure will be done at the end of day. Patient agreeable and patient wants to proceed with procedure.
[2025-01-01 16:01] LABS: Creatinine,Random Urine 225 mg/dL (30-125); Sodium,Urine Random 118.0 mMol/L (20.0-110.0)
--- NOTE | 2025-01-01 17:38 | ESCONSULT_ITS ---
RE: ANNA ROBLES : 1965 DATE OF CONSULTATION: 01/01/2025 CHIEF COMPLAINT: 1. BPH with mild urinary obstruction and LUTS. 2. History of stone disease. 3. Gross hematuria. HISTORY OF PRESENT ILLNESS: Mr. Robles is a 59-year-old gentleman. He has history of stone disease in the past and he had passed those stones without any surgical intervention. He came to the emergency room with history of left-sided abdominal pain of 4 days' duration. The patient had 1 episode of gross hematuria. He has deteriorating renal functions. His serum creatinine is 1.9 He had a CAT scan of the abdomen and pelvis done. This revealed 4 mm stone, left proximal ureter with mild hydronephrosis. PAST MEDICAL HISTORY: He has history of stone disease. He had passed these stones twice. No history of hypertension or diabetes. The pain is described as colicky, rated as severe, localized to left flank. There is no history of fever, chills, nausea, vomiting or dysuria except 1 episode of hematuria. The patient is on tamsulosin 0.4 mg p.o. daily. He still has not passed a stone. Past medical history, family history, review of the system, personal history, please refer to patient's history form dated 12/31/2024, it is in HPI, in EMR. PHYSICAL EXAMINATION: GENERAL: Condition is satisfactory. Orientation x3. HEENT: Normocephalic and atraumatic. Eyes: No anemia or jaundice. VITAL SIGNS: Stable. They are in HPI, in EMR. Chest is symmetrical heart regular rate and rhythm abdomen is obese no masses liver spleen kidney not palpable no CVA tenderness had a CAT scan of the abdomen and pelvis done on 12/30/2024, it is reviewed by me. This revealed mild hydronephrosis due to 4 mm left proximal ureteral stone. His serum creatinine is 1.9 on 12/31/2024. GFR is 40. WBC is 12.5, red cell count is 4.71, and hemoglobin is 14.0. A urine revealed 53 RBCs per high power field. His urine culture was done and there was no growth of the bacteria. PLAN: Because of decreased renal function and mild hydronephrosis, left side, recommendation is cysto, retrograde possible ureteroscopy. If ureter is accommodating, then possible laser stone fragmentation, otherwise, placement of left ureteral stent. Subsequent to that, he may need ESWL of the 4 mm left proximal ureteral stone ureteroscopy laser stone fragmentation. All above issues were discussed with patient in great detail. Procedure and complications of cysto, retrograde ureteroscopy, and stent placement were discussed with patient in great detail. He consented for the procedure. He will also have a follow-up appointment with me in urology office DT: 15:36:09 TT: 17:37:00 Ref: - TID: [id number] MTDD
[2025-01-02] VITALS (15 sets, daily range): BP systolic 143–178; BP diastolic 72–91; PULSE 65–96; RESP 18–94; TEMP 35.8–36.6; O2SAT 92–98
[2025-01-02] MEDS: HYDROmorphone INJ 2 MG/ML VIAL 0.5 MG IVP ×3 (04:03→17:18)
[2025-01-02 06:30] LABS: Basophils # (Auto) 0.0 Thou/mm3 (0.0-0.2); Basophils % (Auto) 1 % (0-2.5); Eosinophils # (Auto) 0.3 Thou/mm3 (0.0-0.5); Eosinophils % (Auto) 4 % (0-10); Hematocrit 38.9 % (41.0-53.0); Hemoglobin 13.2 g/dL (13.5-16.0); Immature Granulocytes Auto 0.03 Thou/mm3 (0.00-0.00); Lymphocytes # (Auto) 1.5 Thou/mm3 (1.0-4.8); Lymphocytes % (Auto) 18 % (10-50); Mean Corpuscular HGB Conc 33.9 g/dl (31.0-37.0); Mean Corpuscular Hemoglobin 29.5 pg (25.0-35.0); Mean Corpuscular Volume 87 fL (80-100); Monocytes # (Auto) 1.0 Thou/mm3 (0.0-0.8); Monocytes % (Auto) 12 % (0-12); Neutrophils # (Auto) 5.5 Thou/mm3 (1.8-7.7); Neutrophils % (Auto) 65 % (37-80); Nucleated Red Blood Cell # 0.00 Thou/mm3 (0.00-0.00); Nucleated Red Blood Cell % 0 /100 WBC (0); Platelet Count 255 Thou/mm3 (140-440); RDW Standard Deviation 37.6 fL (35.1-43.9); Red Blood Count 4.48 Miln/mm3 (4.50-5.90); White Blood Count 8.5 Thou/mm3 (3.8-10.6)
[2025-01-02 06:58] LABS: Anion Gap 11 (7-16); BUN/Creatinine Ratio 9 Ratio (12-20); Blood Urea Nitrogen 16 mg/dL (9-23); Calcium 9.6 mg/dL (8.3-10.6); Carbon Dioxide 25.6 mMol/L (20.0-31.0); Chloride 101 mMol/L (98-107); Creatinine (Component) 1.8 mg/dL (0.6-1.3); Estimated Creatinine Clearance 61.4 mL/min (>60); Glucose 106 mg/dL (74-106); Osmolality,Calculated 276 (275-295); Potassium 3.7 mMol/L (3.4-5.1); Sodium 138 mMol/L (136-145); eGFR 42 See Note
[2025-01-02] MEDS: cefTRIAXone/D5w 1gm IV premix 1 GM/50 ML BAG IV (08:17)
--- NOTE | 2025-01-02 09:20 | ESPR_ITS ---
<Statement entered by Rafa Jacobson MD - 01/02/25 17:53> Patient was seen and examined at bedside. Pending stent placement by Dr. Levine. Anticipated discharge tomorrow if the procedure is performed today. - Patient's plan and care discussed with my attending, Dr. Aditya Jacobson MD Internal Medicine PGY-3 Documentation for date of: 01/02/25 Subjective Subjective Interval history: 59 y/o male with left proximal ureteral stone, left hydronephrosis and CHAYA on admission day 3. Patient seen at bedside this morning. Patient was slightly irritated because nurse had to poke him multiple times to get IV access. Overnight patient slept fine and had good pain control. Currently patient rated flank pain at a 5/10. Patient still has not had any bowel moments, will order Miralax. Patient was seen by urology yesterday evening and shows understanding of current plan from urology. Dr. Levine (urology) recommends retrograde ureteroscopy, possible laser stone fragmentation or otherwise ureteral stent placement. Procedure is planned for today. Pertinent Labs: - WBCs normalized to 8.5, previously 10.7 and 12.5. - H and H stable at 13.2 and 38.9 - Creatinine: 1.8 (1.7 and 1.9 for past 2 days). - GFR: 42 - BUN/Creatinine Ration: 9 (stable) - Urine Creatinine at 225 and Ur Sodium at 118, for a calculated FENa of 0.68%. Exam Vital Signs Temp Pulse Resp BP Pulse Ox O2 Del Method 97.0 F 67 18 168/91 H 97 Room Air 01/02/25 08:00 01/02/25 08:00 01/02/25 08:00 01/02/25 08:00 01/02/25 08:00 01/02/25 08:00 Narrative Exam * General: Patient is fully alert and oriented. Sitting at the edge of the bed. * Resp: Normal lung sounds, no wheezing or strider. * Cardio: RRR, No gallops, rubs or murmurs. * GI: Abdomen in soft, No tenderness to palpation, No guarding or rigidity. * Extremities: No peripheral edema. Equal pulses. No bruises, or color changes. * CVA tenderness positive bilaterally L>R, unchanged. Objective Labs 01/03/25 05:08 01/03/25 05:08 Labs: Laboratory Results - last 24 hr 01/01/25 01/02/25 14:50 05:04 WBC 8.5 RBC 4.48 L Hgb 13.2 L Hct 38.9 L MCV 87 MCH 29.5 MCHC 33.9 RDW Std Deviation 37.6 Plt Count 255 D Neut % (Auto) 65 Lymph % (Auto) 18 [place] % (Auto) 12 Eos % (Auto) 4 Baso % (Auto) 1 Neut # (Auto) 5.5 Lymph # (Auto) 1.5 [place] # (Auto) 1.0 H Eos # (Auto) 0.3 Baso # (Auto) 0.0 Immature Gran # (Auto) 0.03 H Absolute Nucleated RBC 0.00 Immature Gran % 0 Nucleated RBC % 0 Sodium 138 Potassium 3.7 Chloride 101 Carbon Dioxide 25.6 Anion Gap 11 BUN 16 Creatinine 1.8 H Estim Creat Clear Calc 61.4 eGFR 42 L BUN/Creatinine Ratio 9 L Glucose 106 Calculated Osmolality 276 Calcium 9.6 Ur Random Creatinine 225 H Ur Random Sodium 118.0 H Quality Measures Quality Measures VTE prophylaxis (SCD) and none Assessment & Plan Assessment Current Active Medications: Generic Name Dose Route Start Last Admin Trade Name Freq PRN Reason Stop Dose Admin Acetaminophen 650 mg 12/31/24 15:24 Acetaminophen 325 Mg Tablet PO 01/30/25 15:23 Q6H PRN Fever >101.5 Hydrocodone Bitart/Acetaminophen 1 tab 12/31/24 15:24 Hydrocodone/Apap 10/325 Tab PO 01/05/25 15:23 Q4H PRN PAIN SCALE 4-6 (Moderate Dicyclomine HCl 10 mg 12/31/24 15:36 Dicyclomine Inj 10 Mg/Ml 2ml Vial IM 01/30/25 15:35 Q6HR PRN GASTROINTESTINAL PAIN Protocol Hydralazine HCl 10 mg 12/31/24 16:33 Hydralazine Inj 20 Mg/Ml Vial IVP 01/30/25 16:32 Q3H PRN SBP >180mmHg Hydromorphone HCl 0.5 mg 12/31/24 15:24 01/02/25 08:17 Hydromorphone Inj 2 Mg/Ml Vial IVP 01/05/25 15:23 0.5 mg Q3H PRN Administration Pain 7-10 Ceftriaxone Sodium/Dextrose 1 gm in 50 mls @ 100 mls/hr 01/01/25 11:30 01/02/25 08:17 Rocephin/D5w 1gm Iv Premix IV 01/08/25 11:29 100 mls/hr QDAY LEIGH ANN Administration Nifedipine 30 mg 12/31/24 16:00 01/01/25 08:20 Nifedipine Xl 30 Mg Tabcr PO 01/30/25 15:59 30 mg QDAY LEIGH ANN Administration Ondansetron HCl 4 mg 12/31/24 15:24 Ondansetron Inj 2 Mg/Ml Inj 2 Ml IVP 01/30/25 15:23 Q6H PRN NAUSEA OR VOMITING Protocol Pantoprazole Sodium 40 mg 12/31/24 15:30 01/02/25 08:18 Pantoprazole Inj 40 Mg Vial IVP 01/30/25 15:29 40 mg QDAY LEIGH ANN Administration Sennosides 1 tab 12/31/24 15:30 01/01/25 08:20 Senna Tablet PO 01/30/25 15:29 1 tab QDAY LEIGH ANN Administration Protocol Tamsulosin HCl 0.4 mg 12/31/24 15:35 01/01/25 08:20 Tamsulosin Hcl 0.4 Mg Capsule PO 01/30/25 15:34 0.4 mg DAILY LEIGH ANN Administration Plan Margaret Barrientos, 59 y/o male with PMH of kidney stones presenting with left sided pain for 4 days patient was admitted for tx of obstructive Lt Nephrolithiasis, hydronephrosis and CHAYA. Inpatient day 3 #Left Sided Nephrolithiasis - 4mm proximal ureteral stone with left sided hydronephrosis on CT #CHAYA (Stable)- Pre-Renal vs Post-renal or combination of both. BUN/Cr ratio of 9. Cr:1.8 (Previous 1.7 and 1.9) , GFR: 42 (previous 45 and 40). Positive CVA tenderness bilaterally L>R. WBCs 8.5 (down from 10.7 and 12.5), possible pyelonephritis vs UTI. Calculated FENa of 0.68% (<1% suggesting pre- renal cause) - Patient seen by urology yesterday evening, pending retrograde ureteroscopy, possible laser stone fragmentation or ureteral stent. - IV Hydration - Dicyclomine 10 mg IM for Q6 Hrs PRN - Cont Multi model pain control - Cont Monitor CMP and Kidney function - Cont Ceftriaxone IV 1 g Qday. # Hypertension: Could be chronic and worsened due to pain. Today: 168/91 - Nifedipine 30mg PO QD - Start the patient on hydralazine IV 10 mg IV every 3 hours if SBP more than 180 mmHg - Monitor BP - Outpatient workup with PCP # Constipation: Still no bowel moment. Last BM 5 days ago. - Colace x1 PO - Naloxgel 25mg PO x1 - Senna 1 tab PO QD - Miralax 17 g packet QDay Hospital Maintenance: FEN:Low sodium diet DVT ppx: SCD GI ppx:None IV lines:PIV Ponce:Yes Code status:F/C Dispo:Possible DC tomorrow Attending Provider Attestation/Addendum I reviewed labs, imaging, EKG, home medications and prior available records. Face to face evaluation was performed by me. I have personally examined the patient and discussed assessment and plan with the IM team. I reviewed the resident note and agree with the plan with exceptions as below. Nephrolithiasis, left 4 mm ureteral stone Obstructive uropathy CHAYA Possible acute UTI Status post cystoscopy and stent placement. Found ureteral stricture Discussed with RN: Urology recommended Ponce catheter for 24 hours Outpatient follow-up with urology as outpatient for stent removal in 2 weeks Management of pain as needed Status post IV fluids Continue IV ceftriaxone Monitor kidney function. Avoid nephrotoxins
--- NOTE | 2025-01-02 09:48 | PC.NURSE ---
call to distribution for 500 mL LR
[2025-01-02] MEDS: RINGERS LACTATED 500 ML 500 ML 999 ML IV (10:17)
--- NOTE | 2025-01-02 14:35 | SUR.PHASEI ---
1435: Pt. AAOx4, vitals stable, breathing unlabored, no complaint of pain or nausea, no dressing in place, petty catheter in place, report received from Zane RIVERO and MD Carcamo.
--- NOTE | 2025-01-02 14:44 | PD.SUROPNT ---
Date of Procedure 01/02/25 Pre Op Diagnosis BPH with urinary obstruction and LUTS, gross hematuria, CHAYA, 4 mm stone proximal ureter with hydronephrosis Post Op Diagnosis Same plus stricture of fossa navicularis, wide caliber urethral stricture anterior urethra distal to the external urinary sphincter, BPH with bilateral prostatic hypertrophy, left hydronephrosis Procedure Cystoscopic examination urethral dilation left retrograde pyelogram left ureteroscopy placement of left ureteral stent under fluoroscopic examination insertion of Ponce catheter very tight left ureter not accommodating Findings Wide caliber urethral stricture stricture of fossa navicularis obstructive prostate gland left hydronephrosis tight left ureter not accommodating ureteroscope Procedure Description Indication for procedure this is a 59-year-old gentleman he has a history of stone disease in the past which he he had passed. Patient came in into the emergency room with the history of left flank pain with gross hematuria CAT scan was done this revealed 4 mm stone proximal ureter with hydronephrosis and he is kidney functions were deteriorating. Patient was given various options this included observation, cystoscopy left retrograde pyelogram ureteroscopy stent placement procedure and complications of this were discussed with the patient in great detail informed consent is obtained his kidney functions have been deteriorating and because of gross hematuria he was recommended cystoscopic examination rule out bladder tumor Patient was brought to the operating room in a satisfactory condition after appropriate premedication was put on the operating table in a supine position he was appropriately identified by surgeon and operating room staff site scope and indications of the procedure were reconfirmed with the patient he was position on the operating table in a supine position general anesthesia was given uneventfully patient was positioned in a dorsolithotomy position parts were prepped and draped in the usual sterile fashion. Patient at this time received perioperative antibiotics 20 mg of Lasix IV was given for diuresis and prevention of pyelocalyceal is infectious complication. 21 cystoscope was used to do the cystourethroscopy he has stricture of fossa navicularis urethral dilation with male urethral sounds up to 26 Cameroonian was carried out next a cystoscope was advanced he had a stricture in the anterior urethra distal to the external sphincter dilation was done and I was able to pass the scope into the bladder. Examination of bladder and all the quadrant was carried out he had coarse bladder trabeculation with no stone diverticula or tumor was identified. Both ureteral orifices were visualized right ureteral orifice was effluxing clear, left ureter was not effluxing urine. I passed a open ended Pollick catheter into the left ureteral orifice retrograde pyelogram was performed there was minimal hydronephrosis left side. Through the open-ended Pollick catheter I placed a safety wire into the upper pole calyx. I advanced the open-ended Pollick catheter into the renal pelvis. At this time because he had a lot of cloudy urine draining from the left kidney indicative of obstruction. Next open-ended Pollick catheter was removed after I placed the safety wire into the left upper pole calyx. I used the semirigid ureteroscope prostate along the safety wire ureter was very tight not accommodative. Ureteroscope was removed gently over the safety wire I placed 28 cm long 6 Cameroonian double-J stent proximal and in the renal pelvis distal in the bladder. Next after instrument was removed I placed #16 [place] catheter balloon was inflated with 10 cc of water patient after having tolerated the procedure well was sent to recovery room in a satisfactory condition. Patient disposition he needs CMP, KUB, if he is pain-free he can be discharged home to be followed in urology office Anesthesia GETA Pathology / specimen Other (Urine for cytology) Estimated Blood Loss 1.0 Condition Stable Disposition PACU Surgeon Jacqui Levine MD Surgical Staff Operation Date: 01/02/25 13:15 Case Staff Anesthesiologist: Kali Carcamo
--- NOTE | 2025-01-02 15:15 | SUR.PHASEI ---
1515: Pt. AAOx4, vitals stable, breathing unlabored, no complaint of pain or nausea, petty catheter in place, pt. tolerated sips of water well, gave report to Wendy RIVERO prior to transfer to room 352. Family made aware of transfer to room.
--- NOTE | 2025-01-02 15:30 | XR_ITS ---
Examination: Retrograde pyelogram left with without KUB Fluoroscopy 6 spot fluoroscopic films of the abdomen. Date and time: January 02, 2025, 1347 hrs. Indications: Left hydronephrosis left ureteral stone on CT stone study December 30, 2024. Findings: Opacification of the left renal collecting system. Ureteral stent in satisfactory position. Impression: Retrograde pyelogram as above. Fluoroscopy 14 minutes 25 seconds, radiation dose 40.09 milligray
[2025-01-02] MEDS: DICYCLOMINE INJ 10 MG/ML 2ML VIAL IM (18:02)
[2025-01-02] MEDS: NIFEdipine XL 30 MG TABCR PO (18:15)
[2025-01-02] MEDS: NALOXEGOL OXALATE 25 MG TABLET (NON-FORMULARY) PO (18:15)
[2025-01-02] MEDS: TAMSULOSIN HCL 0.4 MG CAPSULE PO (18:15)
[2025-01-02] MEDS: DOCUSATE SOD 250 MG CAPSULE PO (18:15)
[2025-01-03] VITALS: BP 135/94; PULSE 87; RESP 18; TEMP 35.9; O2SAT 96
[2025-01-03 04:00] VITALS: BP 150/92; PULSE 79; RESP 18; TEMP 36.5; O2SAT 96
--- NOTE | 2025-01-03 05:00 | XR_ITS ---
Examination: Abdomen AP single view Technique: AP portable supine abdomen, single view Exam date and time: December 26, 2024, 0514 hours INDICATIONS: History kidney stones post stent placement FINDINGS: Left ureteral stent satisfactory position The proximal 4 mm calculus noted on CT stone study December 30, 2024 is not clearly demonstrated on this exam. Small bowel ileus IMPRESSION: Left ureteral stent satisfactory position.
[2025-01-03 06:38] LABS: Basophils # (Auto) 0.0 Thou/mm3 (0.0-0.2); Basophils % (Auto) 0 % (0-2.5); Eosinophils # (Auto) 0.0 Thou/mm3 (0.0-0.5); Eosinophils % (Auto) 0 % (0-10); Hematocrit 39.0 % (41.0-53.0); Hemoglobin 13.2 g/dL (13.5-16.0); Immature Granulocytes Auto 0.01 Thou/mm3 (0.00-0.00); Lymphocytes # (Auto) 0.7 Thou/mm3 (1.0-4.8); Lymphocytes % (Auto) 11 % (10-50); Mean Corpuscular HGB Conc 33.8 g/dl (31.0-37.0); Mean Corpuscular Hemoglobin 29.3 pg (25.0-35.0); Mean Corpuscular Volume 87 fL (80-100); Monocytes # (Auto) 0.3 Thou/mm3 (0.0-0.8); Monocytes % (Auto) 5 % (0-12); Neutrophils # (Auto) 5.4 Thou/mm3 (1.8-7.7); Neutrophils % (Auto) 84 % (37-80); Nucleated Red Blood Cell # 0.00 Thou/mm3 (0.00-0.00); Nucleated Red Blood Cell % 0 /100 WBC (0); Platelet Count 284 Thou/mm3 (140-440); RDW Standard Deviation 36.9 fL (35.1-43.9); Red Blood Count 4.50 Miln/mm3 (4.50-5.90); White Blood Count 6.5 Thou/mm3 (3.8-10.6)
[2025-01-03 06:53] LABS: Anion Gap 10 (7-16); BUN/Creatinine Ratio 13 Ratio (12-20); Blood Urea Nitrogen 21 mg/dL (9-23); Calcium 9.7 mg/dL (8.3-10.6); Carbon Dioxide 26.5 mMol/L (20.0-31.0); Chloride 101 mMol/L (98-107); Creatinine (Component) 1.6 mg/dL (0.6-1.3); Estimated Creatinine Clearance 69.1 mL/min (>60); Glucose 128 mg/dL (74-106); Magnesium 2.0 mg/dL (1.6-2.6); Osmolality,Calculated 278 (275-295); Phosphorous 3.8 mg/dL (2.4-5.1); Potassium 4.2 mMol/L (3.4-5.1); Sodium 137 mMol/L (136-145); eGFR 49 See Note
[2025-01-03 08:00] VITALS: BP 164/79; PULSE 85; RESP 19; TEMP 36.1; O2SAT 97
[2025-01-03 08:16] VITALS: BP 150/92; PULSE 79
[2025-01-03] MEDS: NIFEdipine XL 30 MG TABCR PO (08:16)
[2025-01-03] MEDS: POLYETHYLENE GLYCOL 17 GM PACKET PO (08:17)
[2025-01-03] MEDS: cefTRIAXone/D5w 1gm IV premix 1 GM/50 ML BAG IV (08:17)
[2025-01-03] MEDS: PANTOPRAZOLE 40 MG TABLET PO (08:17)
[2025-01-03] MEDS: TAMSULOSIN HCL 0.4 MG CAPSULE PO (08:17)
[2025-01-03 10:42] VITALS: PULSE 65; RESP 18; RESP 96
--- NOTE | 2025-01-03 11:41 | ESDS_ITS ---
<Statement entered by Zora Butcher MD - 01/03/25 17:30> I have reviewed the note and agree with the resident's assessment & plan with exceptions as below. I have personally reviewed labs, imaging, home meds/prior records, examined the patient, formulated and discussed management plan with the IM team. Patient examined at bedside today. Patient was admitted for BPH, with urinary obstruction and hydronephrosis, had urinary stents placed by urology, Dr. Levine. Patient to follow-up with urology outpatient for removal of stents, will continue patient on Flomax, and antihypertensives. Patient was then discharged functions as below. Zora Butcher, PGY-2 Internal Medicine Planned Discharge Date 01/03/25 DS: Providers Provider Date of admission: 01/02/25 07:26 Primary care physician: Physician Bety Primary/Family Admitting Provider: Phillip Andersen DO Attending Provider on Admission: Bandar Burgess MD Consults: 12/31/24 15:31 Consult to Urology Stat Comment: CHAYA + LT renal stone with hydronephrosis Consulting Provider: Jacqui Levine Attending Provider on DC: Bandar Burgess MD Discharging Provider: Bandar Burgess MD DS: Diagnosis Problem List Completed Was Problem List Reviewed/Reconciled?: Yes Hospital Course Hospital Course Hospital course: Floyd Robles with past medical history of kidney stones and hypertension was admitted to [facility] on 12/31/24 for severe left flank pain and CHAYA. In the ED patient was in flank pain, only contributory vital was hypertension 168/78. CT AP showed left hydronephrosis and 4mm stone in proximal left ureter. UA was remarkable for 1+ protein, 3+ ketones, 3+ blood, RBC 53, and WBC 5. CHAYA: Cr 1.9, WBC 12.5. Patient admitted for nephrolithiasis, flank pain and CHAYA. Flank pain was managed with Hydromorphone. Pyelonephritis managed with Ceftriaxone. Hypertension managed with Nifedipine. On 01/02/25 Dr. Levine performed a cystoscopic examination, urethral dilation and left a double J stent. KUB on 01/03/25 shows correct stent placement. Patient to be discharged and followed in urology clinic outpatient. Discharge instructions Follow-up with your PCP within 1 week Follow up with your urologist, Dr. Levine within one to two weeks I am prescribing you an antibiotic, take as prescribed Take your new blood pressure medicine, nifedipine, as prescribed Take your medicines as prescribed Return to ED if your symptoms worsen or return Problem List: #BPH #Urinary obstruction #Hydronephrosis, left-sided #CHAYA #Hypertension #Constipation Discharge summary was reviewed with my attending Dr. Burgess and my senior resident Dr. Guadalupe Marion, OMS-IV Status at Discharge Functional status at discharge: independent ambulation Overall status at discharge: patient is progressing back to baseline Time Spent with Patient Time attestation: Total time spent providing and/or coordinating discharge services: Time spent: Greater than 30 minutes Exam Vital Signs Temp Pulse Resp BP Pulse Ox O2 Del Method O2 Flow Rate 97 F 65 18 150/92 H 97 Room Air 2 01/03/25 08:00 01/03/25 10:42 01/03/25 10:42 01/03/25 08:16 01/03/25 08:00 01/03/25 08:00 01/02/25 15:10 Narrative Exam * General: Patient is fully alert and oriented. Laying comfortably in bed. Greets me with a smile and is happy the procedure is done. * Resp: Normal lung sounds, no wheezing or strider. * Cardio: RRR, No gallops, rubs or murmurs. * GI: Abdomen in soft, No tenderness to palpation, No guarding or rigidity. * : Urinary cathetar draining clear urine. Dark urine with possible blood from overnight in the urine bag. * Extremities: No peripheral edema. Equal pulses. No bruises, or color changes. Discharge Plan Plan Patient Disposition: HOME (Self Care) Patient condition on transfer: Stable Care Plan Goals: Discharge instructions Follow-up with your PCP within 1 week Follow up with your urologist, Dr. Levine within one to two weeks I am prescribing you an antibiotic, take as prescribed Take your new blood pressure medicine, nifedipine, as prescribed Take your medicines as prescribed Return to ED if your symptoms worsen or return Prescriptions/Referrals Prescriptions/Med Rec: New cephalexin 500 mg capsule 500 mg PO Q12H 5 Days Qty: 10 0RF Rx Instructions: Take one capsule by mouth twice a day nifedipine 30 mg tablet extended release 30 mg PO QDAY 14 Days Qty: 14 0RF Rx Instructions: Take one tablet by mouth every day tamsulosin [Flomax] 0.4 mg capsule 0.4 mg PO HS 14 Days Qty: 14 0RF Rx Instructions: Take one capsule by mouth at bedtime Continued hydrocodone-acetaminophen 5-325 mg tablet 1 tab PO BID MDD 2 PRN (Reason: pain (scale score 7-10)) Qty: 10 0RF Discontinued tamsulosin [Flomax] 0.4 mg capsule 0.4 mg PO QDAY Qty: 5 0RF ibuprofen 600 mg tablet 600 mg PO Q6H PRN (Reason: pain) Qty: 30 0RF acetaminophen-codeine 300-30 mg tablet 1 tab PO Q6H PRN (Reason: pain) Qty: 10 0RF ondansetron 4 mg tablet,disintegrating 4 mg PO Q6H PRN (Reason: nausea and vomiting) Qty: 10 0RF amlodipine 5 mg tablet 5 mg PO QDAY MDD 1 Qty: 30 0RF ibuprofen 800 mg tablet 800 mg PO TID PRN (Reason: pain) Qty: 20 0RF hydrocodone-acetaminophen 5-325 mg tablet 1 tab PO Q6H MDD 4 tabs PRN (Reason: pain) Qty: 10 0RF Rx Instructions: Patient is not allergic to morphine or opiates hydrocodone-acetaminophen 5-325 mg tablet 1 tab PO Q8H MDD 3 tabs PRN (Reason: pain) Qty: 10 0RF Referrals: Jacqui Levine MD [Physician] - No Primary/Family,Physician [Primary Care Provider] - Patient/Caregiver Discharge Instructions Discharge Activity: activity as tolerated Education Materials: Having a Ureteral Stent, Acute Kidney Failure Dc Print Language: Tuvaluan Stand Alone Forms: [facility]ge Award Info., Patient Portal Info Letter Discharge Order Discharge Orders: Discharge (Routine); Ordered 01/03/25 Ordered By: Zora Butcher Quality Discharge Quality Measures VTE prophylaxis Attestestation MD Attestation I reviewed labs, imaging, EKG, home medications and prior available records. Face to face evaluation was performed by me. I have personally examined the patient and discussed assessment and plan with the IM team. I reviewed the resident note and agree with the plan with exceptions as below. Nephrolithiasis, left 4 mm ureteral stone Obstructive uropathy CHAYA Possible acute UTI Status post cystoscopy and stent placement. Found ureteral stricture Discussed with RN: Urology recommended Ponce catheter for 24 hours Patient passed his voiding trial Outpatient follow-up with urology as outpatient for stent removal in 2 weeks Management of pain as needed Will discharge on oral Keflex for 5 more days Will prescribe tamsulosin Monitor kidney function as outpatient Time spent is 39 minutes. More than 50% of the time was spent on patient education and coordination of care.
[2025-01-03 12:00] VITALS: BP 153/90; PULSE 91; RESP 18; TEMP 36.2; O2SAT 99
--- NOTE | 2025-01-03 14:39 | PC.SS ---
SS attempted to see patient this afternoon as he had questions about his bill. SS went by patient's room and he already discharged home. Patient shows a private PPO insurance coverage.
== END 2025-01-03 14:10 | disposition home or self-care (01) ==
LOC: SERX 14:19 → SERHOLD 16:11 → S3NX 01-01 08:38 → SERHOLD 01-01 09:57
PROVIDERS: Nurse Practitioner Family; Student in an Organized Health Care Education/Training Program; Urology; Admitting Provider Student in an Organized Health Care Education/Training Program; Emergency Provider Emergency Medicine; Visit Provider Student in an Organized Health Care Education/Training Program
PROC: 0TJB8ZZ Inspection of Bladder, Via Natural or Artificial Opening Endoscopic (ICD-10-PCS; CPT 52000; principal; 2025-01-02 13:00)
DX: N35.919 Unspecified urethral stricture, male, unspecified site (principal); N13.6 Pyonephrosis; N13.8 Other obstructive and reflux uropathy; N17.9 Acute kidney failure, unspecified; N40.1 Benign prostatic hyperplasia with lower urinary tract symptoms; I10 Essential (primary) hypertension; K59.00 Constipation, unspecified; Z66 Do not resuscitate
CPT/HCPCS: 52351; 36415; 74018; 74420; 80048; 80053; 81001; 82570; 83036; 83735; 84100; 84300; 84443; 85025; 85610; 85730; 96361; 96372; 96374; 96375; 96376; 99284; A4217; A4649; C1769; C1894; C2617; G0378; J0131; J0500; J0696; J1100; J1171; J1580; J1885; J1938; J2250; J2405; J2470; J2704; J3010; J3490; J7120; J7999; A9270

== ENCOUNTER → 2025-01-14 | Outpatient (CLI) | payer OTHER, SELFPAY ==
[2025-01-14 10:40] LABS: Collection Type, Urine Clean Catch
[2025-01-14 11:16] LABS: Basophils # (Auto) 0.1 Thou/mm3 (0.0-0.2); Basophils % (Auto) 1 % (0-2.5); Eosinophils # (Auto) 0.2 Thou/mm3 (0.0-0.5); Eosinophils % (Auto) 2 % (0-10); Hematocrit 41.8 % (41.0-53.0); Hemoglobin 13.9 g/dL (13.5-16.0); Immature Granulocytes Auto 0.01 Thou/mm3 (0.00-0.00); Lymphocytes # (Auto) 2.6 Thou/mm3 (1.0-4.8); Lymphocytes % (Auto) 33 % (10-50); Mean Corpuscular HGB Conc 33.3 g/dl (31.0-37.0); Mean Corpuscular Hemoglobin 29.1 pg (25.0-35.0); Mean Corpuscular Volume 87 fL (80-100); Monocytes # (Auto) 0.4 Thou/mm3 (0.0-0.8); Monocytes % (Auto) 5 % (0-12); Neutrophils # (Auto) 4.7 Thou/mm3 (1.8-7.7); Neutrophils % (Auto) 59 % (37-80); Nucleated Red Blood Cell # 0.00 Thou/mm3 (0.00-0.00); Nucleated Red Blood Cell % 0 /100 WBC (0); Platelet Count 341 Thou/mm3 (140-440); RDW Standard Deviation 37.4 fL (35.1-43.9); Red Blood Count 4.78 Miln/mm3 (4.50-5.90); White Blood Count 8.0 Thou/mm3 (3.8-10.6)
[2025-01-14 11:26] LABS: Albumin, Serum 4.3 gm/dL (3.4-4.8); Anion Gap 11 (7-16); BUN/Creatinine Ratio 9 Ratio (12-20); Blood Urea Nitrogen 13 mg/dL (9-23); Calcium 9.6 mg/dL (8.3-10.6); Calcium (Corrected) 9.6 mg/dL (8.5-10.1); Carbon Dioxide 27.1 mMol/L (20.0-31.0); Chloride 105 mMol/L (98-107); Creatinine (Component) 1.4 mg/dL (0.6-1.3); Glucose 93 mg/dL (74-106); Osmolality,Calculated 285 (275-295); Phosphorous 3.1 mg/dL (2.4-5.1); Potassium 4.2 mMol/L (3.4-5.1); Sodium 143 mMol/L (136-145); eGFR 57 See Note
[2025-01-14 11:33] LABS: Bilirubin,Urine Negative (Negative); Blood,Urine 2+ (Negative); Clarity,Urine Clear (Clear/Hazy); Color,Urine Yellow (Lt Yel-Yel); Glucose, Urine Negative (Negative); Hyaline Casts,Urine < 1 /hpf (0-1); Ketones,Urine Negative (Negative); Leukocyte Esterase,Urine Positive (Negative); Nitrite,Urine Negative (Negative); PH,Urine 5.5 (5.0-7.0); Protein,Urine Trace (Neg - Trace); RBC,Urine 165 /hpf (0-3); Specific Gravity,Urine 1.021 (1.001-1.035); Squamous Epithelial Cell,Urine < 1 /hpf (0-5); Urobilinogen,Urine Negative mg/dL (0.0-1.0); WBC,Urine 6 /hpf (0-5)
== END | disposition home or self-care (01) ==
LOC: COPL 09:51
PROVIDERS: PCP Family Medicine; Referring Provider Family Medicine; Visit Provider Family Medicine
DX: R10.10 Upper abdominal pain, unspecified (principal)
CPT/HCPCS: 36415; 80069; 81001; 85025; 87086

== ENCOUNTER → 2025-01-17 | Outpatient (CLI) | payer OTHER, SELFPAY ==
--- NOTE | 2025-01-17 10:51 | XR_ITS ---
Examination: Abdomen AP single view Technique: AP portable supine abdomen, single view Exam date and time: January 18, 2020 5:11 AM, comparison December 26, 2024 INDICATIONS: History left flank pain, kidney stones 2 years, stent placement 2 weeks ago FINDINGS: Left ureteral stent satisfactory position. Stable 4 mm proximal left ureteral calculus Nonobstructive bowel gas pattern IMPRESSION: Left ureteral stent satisfactory position
== END | disposition home or self-care (01) ==
PROVIDERS: PCP Family Medicine; Referring Provider Urology; Visit Provider Urology
DX: R10.9 Unspecified abdominal pain (principal); Z98.890 Other specified postprocedural states
CPT/HCPCS: 74018

== ENCOUNTER 2025-01-26 20:09 | Emergency (ER) | payer OTHER, SELFPAY ==
[2025-01-26 20:11] VITALS: BMI 36.9
--- NOTE | 2025-01-26 20:12 | EKG_ITS ---
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
[2025-01-26 20:17] VITALS: BP 132/83; PULSE 75; RESP 18; TEMP 36.5; O2SAT 95
--- NOTE | 2025-01-26 20:43 | XR_ITS ---
Examination: PA chest single view Technique: Upright PA chest single view Date and time: January 26, 2025, 2103 hrs. Indications: Shortness of breath today. Findings: Normal heart size. Lungs are clear. The osseous structures are intact. Impression: No active disease
--- NOTE | 2025-01-26 20:43 | XR_ITS ---
Examination: CT brain head without contrast. 2-D sagittal coronal reconstructions Date and time of exam:January 26, 2025, 2100 hrs. Indications: Syncopal episode today CTDI: vol (mGy):53.7 DLP: (mGycm):1143 Technique: Multiple CT axial sections of the brain have been obtained, 5 mm slice thickness. Contrast has not been administered. 2-D sagittal, coronal reconstructions have been obtained Low dose protocols were performed. One or more of the following dose reduction techniques were used; automated exposure control, adjustment of the mA and/or KV according to patient size, use of iterative reconstruction technique. Findings: No significant ventricular enlargement. Intra-axial or extra-axial hemorrhage density is not seen. No mass effect or midline shift Basal cisterns are not remarkable. Fourth ventricle is midline. Cranial vault intact. Impression: Negative for acute hemorrhage, mass effect or midline shift Advise clinical correlation and follow-up accordingly
--- NOTE | 2025-01-26 20:54 | XR_ITS ---
Examination: CT chest, without intravenous contrast. CT abdomen, without intravenous contrast. CT pelvis, without intravenous contrast. 2-D sagittal and coronal reconstructions. 3-D reconstructions. Date and time of exam:January 26, 2025, 2101 hrs. Indications: Chest pain shortness of breath abdominal pain today CTDI vol (mgy) 13 DLP (MGycm)1157 Technique: Multiple CT images, 3.0 mm slice thickness, obtained chest, abdomen, pelvis, with the high-resolution 64 slice scanner.. Sagittal and coronal 2-D reconstructions are obtained. 3-D reconstructions Low dose protocols were performed. One or more of the following dose reduction techniques were used; automated exposure control, adjustment of the mA and/or KV according to patient size, use of iterative reconstruction technique. Findings: No thoracic aortic aneurysm dilatation. Pulmonary artery segments are not enlarged. No mediastinal lymphadenopathy. No pneumonia or pulmonary edema or pleural disease No visualized liver or splenic lesion Contracted gallbladder No pancreatic or adrenal mass 4 mm left renal calculus No hydronephrosis Left ureteral stent satisfactory position Normal appendix Aorta normal size No bowel obstruction Bladder intact Mild prostatomegaly Impression: No mediastinal lymphadenopathy No pneumonia pulmonary edema or pleural disease 4 mm left renal calculus Left ureteral stent satisfactory position, no hydronephrosis Significant osteopenia with moderate to advanced diffuse thoracic lumbar degenerative disc disease
--- NOTE | 2025-01-26 21:05 | PD.EDSYNC ---
ED Syncope RME/HPI General Chief Complaint: General Adult/Misc Complain Stated Complaint: EPISODE OF UNRESPONSIVENESS Time Seen by Provider: 01/26/25 20:25 Arrival date/time: 01/26/25 20:09 RME / HPI RME / HPI narrative: See [facility] for Dr. Graham's HPI Documentation. Related Data Previous Rx's ?Medication ?Instructions ?Recorded hydrocodone 5 mg-acetaminophen 325 1 tab PO BID PRN pain (scale score 12/30/24 mg tablet 7-10) #10 tabs levetiracetam 500 mg tablet 500 mg PO BID #60 tabs 01/26/25 (Keppra) Allergies Allergy/AdvReac Type Severity Reaction Status Date / Time latex Allergy Severe Hives Verified 01/26/25 20:10 morphine Allergy Severe unknown Verified 01/26/25 20:10 shrimp Allergy Severe HIVES Verified 01/26/25 20:10 Review of Systems Review of Systems Systems Reviewed: All systems reviewed, normal except as documented Past Medical History Past Medical History CARDIAC: Positive Hypertension GENITOURINARY: Positive Kidney Stones Family History FAMILY HISTORY: Positive Family Respiratory Disorders and Family Cancer Surgical History SURGICAL: Positive Vasectomy Social History SMOKING STATUS: Former smoker ED Exam Narrative Physical exam: See [facility] for Dr. Graham's Physical Exam Documentation. Course Quality Measures none Orders Category Date Time Status EKG (ED ONLY) *Do not use* NOW Care 01/26/25 20:12 Completed Fingerstick [Bedside Blood Glucose] NOW Care 01/26/25 20:12 Completed Orthostatic Vitals NOW Care 01/26/25 20:[address] chest abdomen pelvis wo Stat Exams 01/26/25 20:[address] head/brain wo con Stat Exams 01/26/25 20:43 Completed EKG (ED Only) Stat Exams 01/26/25 20:12 Draft XR chest 1V portable Stat Exams 01/26/25 20:43 Completed Alcohol, Blood Medical Stat Lab 01/26/25 21:15 Completed Amylase Stat Lab 01/26/25 21:15 Completed BNP [B-Type Natriuretic Peptide] Stat Lab 01/26/25 21:15 Completed Beta Hydroxybutyrate Stat Lab 01/26/25 21:15 Completed Bilirubin,Direct Stat Lab 01/26/25 21:15 Completed CBC Stat Lab 01/26/25 21:15 Completed CMP [Comprehensive Metabolic Panel] Stat Lab 01/26/25 21:15 Completed CRP [C-Reactive Protein] Stat Lab 01/26/25 21:15 Completed D-Dimer Stat Lab 01/26/25 21:15 Completed Drug Screen,Urine Stat Lab 01/26/25 21:23 Completed ESR [Sed Rate (ESR)] Stat Lab 01/26/25 21:15 Completed Magnesium Stat Lab 01/26/25 21:15 Completed Procalcitonin Stat Lab 01/26/25 21:15 Completed TSH [Thyroid Stimulating Hormone] Stat Lab 01/26/25 21:15 Completed Troponin I Stat Lab 01/26/25 21:15 Completed UA, C/S IF [Urinalysis, C/S if Indicated] Stat Lab 01/26/25 21:23 Completed VBG [Venous Blood Gas] Stat Lab 01/26/25 21:15 Completed Vital Signs Vital signs: Vital Signs Temperature 97.7 F 01/26/25 20:17 Pulse Rate 75 01/26/25 20:17 Respiratory Rate 18 01/26/25 20:17 Blood Pressure 132/83 H 01/26/25 20:17 Pulse Oximetry (%) 95 01/26/25 20:17 Oxygen Delivery Method Room Air 01/26/25 20:17 Syncope MDM Narrative MDM Narrative:: This section includes all my notes and documentations, including HPI, PE, and ED course. Luis Graham MD HPI: 60 y/o male with Hx of HTN presents after family witnessed the patient passing out for 10 minutes around noon today, several hours ago. He was sitting in the couch. So no injury. Son describes his arms above his head. Uncertain about seizure activity. No incontinence. No history of similar episodes. He doesn't recall symptoms prior to the episodes. Currently, he feels well and normal. No other complaints. ROS: All negative except as documented in HPI. Physical Exam: General: Alert and oriented. No acute distress. Eyes: Conjunctivae and lids clear. EOMI. PERRL. ENT: No nasal congestion. Neck: Supple. No carotid bruit. No JVD. Heart: RRR. Lungs: No respiratory distress. Good air movement. No rhonchi, wheezing, rales. Abdomen: Soft and nontender. Normal bowel sounds. No distension. No rebound or guarding. Back: No CVA tenderness. Legs: No clubbing, cyanosis, edema. Skin: Warm and dry. Neuro: Alert and oriented X 3. Cranial Nerves II-XII grossly intact. No peripheral motor deficits. I reviewed all diagnostic test results: My interpretation of the EKG: NSR (69 bpm) with no ST-T changes. My interpretation of the chest x-ray is: NAD. My review of the Head/Brain CT report is: NAD. My review of the Chest/Abdomen/Pelvis CT report is: NAD. Blood tests and urine tests unremarkable, including negative troponin/D-dimer/BNP. At this point, diagnoses include: Syncope of unclear etiology, possibly due to seizure. Recommended more outpatient care. Based on my best medical judgment, made decision no further evaluation or treatment indicated at this time. Patient understands and agrees to the discharge instructions customized and printed, see below. Discharge Instructions from Dr. Graham printed for you: 1.? After extensive evaluation, exact cause of you passing out for 10 minutes was not determined. But there is no life-threatening condition.? Such as stroke or brain tumor. 2.? You may have had a seizure. Take Keppra as prescribed until cleared by a doctor taking care of you. 3.? See a private doctor on 01/28/2025 for recheck and further care. Ask to review all test results and official radiology reports, to make sure you receive all necessary follow-ups and monitoring. Ask for help with more workup and treatment, including EEG (testing electrical activity of the brain) and referral to see a neurologist (seizure specialist). To make sure there is no serious underlying heart condition, ask to help you get more tests for your heart that cannot be done here in the ER. Such as Holter Monitor (cardiac monitoring at home from a day to even a month), heart stress test (on treadmill or with medication), echocardiogram (imaging of your heart structures), heart catherization (checking for blockages in your heart arteries), and a referral to see a Observer Helper. 4.? Seek immediate medical care with another episode or with any concerns. Luis Graham MD Patient data External records reviewed:: [facility] previous records (Reviewed prior ED records from 12/31/24. Patient was seen for Kidney stone on left side.) Clinical information provided by:: patient Social determinants that could affect healthcare access:: none Patient has the following chronic illnesses:: HTN, Kidney stones How is presenting disease/condition affected by chronic disease/condition?: exacerbated by Evaluation data The following diagnostics were reviewed and interpreted by me:: lab results, radiology exam(s) and EKG tracing(s) (My interpretation of the EKG: NSR (69 bpm) with no ST-T changes. Luis Graham MD) Lab and/or radiology exams considered but not ordered:: None Interpretation Summary: I reviewed all diagnostic test results: My interpretation of the EKG: NSR (69 bpm) with no ST-T changes. My interpretation of the chest x-ray is: NAD. My review of the Head/Brain CT report is: NAD. My review of the Chest/Abdomen/Pelvis CT report is: NAD. Blood tests and urine tests unremarkable, including negative troponin/D-dimer/BNP. Medications / Prescriptions Medications or Prescriptions considered but not ordered:: None Medication administrations:: N/A Consultations Consultation(s) initiated? (list below): No Diagnosis Syncope Differential Diagnosis: syncope due to orthostatic hypotension, vasovagal syncope, complete atrioventricular block, pulmonary embolism and dehydration Most likely diagnosis given after review of the tests above:: Syncope of unclear etiology, possibly due to seizure. Admission Indicated Admission indicated?: not indicated Explain why admission is indicated or not indicated:: With no condition needing emergent intervention, there was no indication for admission. Admission Request Was there a request for admission?: No Disposition Plan Disposition Plan: Discharge Discharge Attestation Discharge Attestation: The patient and all family members were given an opportunity to ask questions and understood the discharge instructions. Discharge instructions specifically effects, indications for sooner follow up or return to the emergency department, and the expected course of current diagnosis. Patient condition: Stable Discharge Plan Plan Patient Disposition: HOME (Self Care) Prescriptions/Referrals Prescriptions/Med Rec: New levetiracetam [Keppra] 500 mg tablet 500 mg PO BID Qty: 60 0RF No Action hydrocodone-acetaminophen 5-325 mg tablet 1 tab PO BID MDD 2 PRN (Reason: pain (scale score 7-10)) Qty: 10 0RF Referrals: Eric Gomez MD [Primary Care Provider, Family Practice] - In 1 week Problem List Clinical Impression: Syncope Patient/Caregiver Discharge Instructions Discharge Activity: activity as tolerated Education Materials: ED Near-Fainting, Uncertain Cause, ED Seizure New Onset Unknown ... Additional Instructions: Discharge Instructions from Dr. Graham printed for you: 1.? After extensive evaluation, exact cause of you passing out for 10 minutes was not determined. But there is no life-threatening condition.? Such as stroke or brain tumor. 2.? You may have had a seizure. Take Keppra as prescribed until cleared by a doctor taking care of you. 3.? See a private doctor on 01/28/2025 for recheck and further care. Ask to review all test results and official radiology reports, to make sure you receive all necessary follow-ups and monitoring. Ask for help with more workup and treatment, including EEG (testing electrical activity of the brain) and referral to see a neurologist (seizure specialist). To make sure there is no serious underlying heart condition, ask to help you get more tests for your heart that cannot be done here in the ER. Such as Holter Monitor (cardiac monitoring at home from a day to even a month), heart stress test (on treadmill or with medication), echocardiogram (imaging of your heart structures), heart catherization (checking for blockages in your heart arteries), and a referral to see a Observer Helper. 4.? Seek immediate medical care with another episode or with any concerns. Print Language: Stateless Stand Alone Forms: [employer]adege Award Info., Patient Portal Info Letter
[2025-01-26 21:30] LABS: Collection Type, Urine Clean Catch
[2025-01-26 21:33] LABS: Base Excess, Venous 2 (-3-3); O2 Saturation, Venous 60 % (96-97); PCO2, Venous 49 mmHg (36-56); PO2, Venous 32 mmHg (15-58); pH, Venous 7.37 (7.33-7.66)
[2025-01-26 21:36] LABS: Sed Rate (ESR) 11 mm/hr (0-20)
[2025-01-26 21:38] LABS: Basophils # (Auto) 0.1 Thou/mm3 (0.0-0.2); Basophils % (Auto) 1 % (0-2.5); Eosinophils # (Auto) 0.4 Thou/mm3 (0.0-0.5); Eosinophils % (Auto) 5 % (0-10); Hematocrit 38.9 % (41.0-53.0); Hemoglobin 13.3 g/dL (13.5-16.0); Immature Granulocytes Auto 0.02 Thou/mm3 (0.00-0.00); Lymphocytes # (Auto) 2.6 Thou/mm3 (1.0-4.8); Lymphocytes % (Auto) 34 % (10-50); Mean Corpuscular HGB Conc 34.2 g/dl (31.0-37.0); Mean Corpuscular Hemoglobin 29.6 pg (25.0-35.0); Mean Corpuscular Volume 87 fL (80-100); Monocytes # (Auto) 0.6 Thou/mm3 (0.0-0.8); Monocytes % (Auto) 8 % (0-12); Neutrophils # (Auto) 4.1 Thou/mm3 (1.8-7.7); Neutrophils % (Auto) 53 % (37-80); Nucleated Red Blood Cell # 0.00 Thou/mm3 (0.00-0.00); Nucleated Red Blood Cell % 0 /100 WBC (0); Platelet Count 255 Thou/mm3 (140-440); RDW Standard Deviation 38.5 fL (35.1-43.9); Red Blood Count 4.49 Miln/mm3 (4.50-5.90); White Blood Count 7.7 Thou/mm3 (3.8-10.6)
[2025-01-26 21:40] LABS: Beta Hydroxybutyrate 0.2 mmol/L (<0.6)
[2025-01-26 21:45] LABS: Bilirubin,Urine Negative (Negative); Blood,Urine 2+ (Negative); Clarity,Urine Clear (Clear/Hazy); Color,Urine Colorless (Lt Yel-Yel); Culture Indicated,Urine Not Indicated; Glucose, Urine Negative (Negative); Ketones,Urine Negative (Negative); Leukocyte Esterase,Urine Positive (Negative); Nitrite,Urine Negative (Negative); PH,Urine 6.0 (5.0-7.0); Protein,Urine Negative (Neg - Trace); RBC,Urine 7 /hpf (0-3); Specific Gravity,Urine 1.010 (1.001-1.035); Squamous Epithelial Cell,Urine < 1 /hpf (0-5); Urobilinogen,Urine Negative mg/dL (0.0-1.0); WBC,Urine 4 /hpf (0-5)
[2025-01-26 21:50] LABS: Amphetamine/Methamp Scrn,U Negative (Negative); Barbiturate Screen,Urine Negative (Negative); Benzodiazepines Screen,Urine Negative (Negative); Benzoylecgonine Screen, Ur Negative (Negative); Fentanyl Screen,Urine Negative (Negative); Opiate Screen,Urine Negative (Negative); THC Screen,Urine Positive (Negative)
[2025-01-26 21:51] LABS: B-Type Natriuretic Peptide < 20 pg/mL (0-100)
[2025-01-26 21:56] LABS: D-Dimer < 250 ng/mL (<600)
[2025-01-26 22:22] LABS: Alanine Aminotransferase 19 U/L (10-49); Albumin, Serum 4.4 gm/dL (3.4-4.8); Albumin/Globulin Ratio 1.7 (1.2-2.2); Alcohol, Blood Medical < 3.0 mg/dL (0-10.0); Alkaline Phosphatase 70 U/L (46-116); Amylase 97 U/L (30-118); Anion Gap 9 (7-16); Aspartate Amino Transferase 20 U/L (0-34); BUN/Creatinine Ratio 12 Ratio (12-20); Bilirubin,Direct < 0.1 mg/dL (0.0-0.3); Bilirubin,Total 0.3 mg/dL (0.3-1.2); Blood Urea Nitrogen 16 mg/dL (9-23); C-Reactive Protein < 0.5 mg/dL (0.0-0.9); Calcium 9.5 mg/dL (8.3-10.6); Calcium (Corrected) 9.5 mg/dL (8.5-10.1); Carbon Dioxide 26.2 mMol/L (20.0-31.0); Chloride 106 mMol/L (98-107); Creatinine (Component) 1.3 mg/dL (0.6-1.3); Estimated Creatinine Clearance 82.3 mL/min (>60); Globulin 2.6 gm/dL (2.3-3.5); Glucose 90 mg/dL (74-106); Magnesium 2.0 mg/dL (1.6-2.6); Osmolality,Calculated 282 (275-295); Potassium 4.1 mMol/L (3.4-5.1); Procalcitonin < 0.04 ng/ml (0.0-0.49); Sodium 141 mMol/L (136-145); Thyroid Stimulating Hormone 2.44 uIU/mL (0.55-4.78); Total Protein 7.0 gm/dL (5.7-8.2); Troponin I < 0.020 ng/mL (0.0-0.045); eGFR > 60 See Note
== END 2025-01-26 23:38 | disposition home or self-care (01) ==
PROVIDERS: Emergency Provider Emergency Medicine; PCP Family Medicine
DX: R55 Syncope and collapse (principal); N20.0 Calculus of kidney; R06.02 Shortness of breath; I10 Essential (primary) hypertension; Z87.891 Personal history of nicotine dependence; Z91.040 Latex allergy status; Z88.5 Allergy status to narcotic agent; Z91.013 Allergy to seafood
CPT/HCPCS: 36415; 70450; 71045; 71250; 74176; 80053; 80307; 80320; 81001; 82010; 82150; 82248; 82803; 83735; 83880; 84145; 84443; 84484; 85025; 85379; 85652; 86140; 93005; 99284; G0480

== ENCOUNTER → 2025-01-28 | Outpatient (BNVA) | payer OTHER, SELFPAY | END | disposition home or self-care (01) | PROVIDERS: PCP Family Medicine; Referring Provider Family Medicine; Visit Provider Urology | DX: N32.89 Other specified disorders of bladder (principal); Z96.0 Presence of urogenital implants; N40.1 Benign prostatic hyperplasia with lower urinary tract symptoms; N13.8 Other obstructive and reflux uropathy; I10 Essential (primary) hypertension | CPT/HCPCS: 52310; 96372; A4217; A4649; C1894; J1580; A9270 ==

== ENCOUNTER → 2025-02-18 | Outpatient (CLI) | payer OTHER, SELFPAY ==
[2025-02-27 15:36] LABS: Stone Analysis Source STONE
[2025-02-28 06:23] LABS: Stone Analysis Weight 0.049 g
== END | disposition home or self-care (01) ==
LOC: SLDO 14:40
PROVIDERS: Referring Provider Urology; Visit Provider Urology
DX: N20.0 Calculus of kidney (principal)
CPT/HCPCS: 82365